=== PATIENT | female | born 1980 | race Caucasian/White ===

== ENCOUNTER 2020-03-19 14:29 | Outpatient (REF) | payer MEDICAID, SELFPAY | END 2020-03-19 14:30 | disposition home or self-care (01) | LOC: HO.LAB 14:29 | PROVIDERS: Visit Provider Internal Medicine | DX: Z20.828 Contact with and (suspected) exposure to other viral communicable diseases (principal) | CPT/HCPCS: C9803; U0003 ==

== ENCOUNTER 2020-05-10 16:50 | Outpatient (REF) | payer MEDICAID, SELFPAY | END 2020-05-10 16:51 | disposition home or self-care (01) | LOC: HO.LAB 16:50 | PROVIDERS: Visit Provider Internal Medicine | DX: Z20.822 Contact with and (suspected) exposure to COVID-19 (principal) | CPT/HCPCS: 36415; C9803; U0003; U0005 ==

== ENCOUNTER 2021-04-01 13:17 | Emergency (ER) | payer MEDICAID, SELFPAY ==
--- NOTE | ~2021-04-01 | XR_ITS ---
EXAMINATION: XR CHEST CLINICAL INFORMATION: Chest pain COMPARISON: None TECHNIQUE: Frontal view of the chest was obtained. FINDINGS: The lungs are clear. There is no pneumothorax or pleural reaction. No infiltrate or groundglass opacity or effusion. Heart size normal. The hilar and mediastinal contours are unremarkable. No visible acute bony abnormality. XR/XR chest 1V IMPRESSION: Unremarkable examination.
--- NOTE | 2021-04-01 14:48 | ECG_ITS ---
Test Reason : cp Blood Pressure : / mmHG Vent. Rate : 082 BPM Atrial Rate : 082 BPM P-R Int : 126 ms QRS Dur : 076 ms QT Int : 360 ms P-R-T Axes : 024 041 046 degrees QTc Int : 420 ms Normal sinus rhythm Normal ECG When compared with ECG of 02-SEP-2016 00:03, No significant change was found Referred By: Generic ED Physician Electronically Signed By:Pradip Meeks
[2021-04-01 15:00] VITALS: BP 122/58; PULSE 90; RESP 18; TEMP 36.9; O2SAT 100
[2021-04-01 15:07] LABS: MANUAL DIFF FLAG NO
[2021-04-01 15:09] LABS: Basophils Percent Auto 0.6 % (0-2); Eosinophils Absolute Auto 0.3 X10*3/uL (0.0-0.4); Hematocrit 36.3 % (37.0-47.0); Hemoglobin 11.8 g/dl (12.0-16.0); Imm Gran Abs Auto 0.02 X10*3/uL (0.00-0.03); Imm Gran Pct Auto 0.3 % (0.0-0.4); Lymphocytes Absolute Auto 0.8 X10*3/uL (1.2-4.9); Lymphocytes Percent Auto 11.9 % (20-40); Mean Corpuscular HGB Conc 32.5 g/dl (31.0-35.0); Mean Corpuscular Hemoglobin 26.8 pg (27.0-33.0); Mean Corpuscular Volume 82.5 fL (80.0-98.0); Mean Platelet Volume 12.4 fL (9.4-12.3); Monocytes Absolute Auto 0.5 X10*3/uL (0.1-1.2); Monocytes Percent Auto 6.9 % (2-11); Neutrophils Absolute Auto 5.1 x10*3/uL (2.0-8.3); Neutrophils Percent Auto 76.3 % (45-73); Platelet Count 177 X10*3/uL (160-400); Red Cell Distribution Width 13.8 % (11.0-16.0); White Blood Count 6.7 X10*3/uL (4.8-10.8)
[2021-04-01 15:21] LABS: Anion Gap 10 (12-20); Blood Urea Nitrogen 8 mg/dL (9-16); Calcium 9.3 mg/dL (8.4-10.2); Carbon Dioxide 28 mmol/L (22-29); Chloride 106 mmol/L (96-108); Estimated Glomerular Filt Rate > 60; Glucose Random 91 mg/dL (60-115); Potassium 3.6 mmol/L (3.3-5.1); Sodium 140 mmol/L (135-145)
[2021-04-01 15:27] VITALS: BP 122/71; PULSE 89; RESP 18; TEMP 36.8; O2SAT 100; BMI 27.4
[2021-04-01 15:27] LABS: Troponin-I High Sensitivity < 3.5 ng/L (<3.5-17.0)
[2021-04-01 15:58] LABS: COVID-19 Test Negative (Negative); IDNOW Serial# 9DD0AD1C
--- NOTE | 2021-04-01 16:03 | ED_ITS ---
HPI - URI/Sore Throat General Chief Complaint: Upper Respiratory Symptoms Stated Complaint: Chest pain/asthma Time Seen by Provider: 04/01/21 16:02 Source: patient Mode of arrival: ambulatory Limitations: no limitations History of Present Illness HPI Narrative: 41-year-old female here with complaints of chest discomfort while coughing, wheezing, chills and body aches 1st 2-3 days. Patient tells me she ran out of her albuterol inhaler at home. She is not vaccinated for COVID. She denies any fever, abdominal pain, vomiting, diarrhea, rash. No leg swelling or pain. No recent travel or surgery. No OCP use. Related Data Previous Rx's Medication Instructions Recorded benzonatate 100 mg capsule 200 mg PO TID PRN #20 cap 04/01/21 ibuprofen 600 mg tablet 600 mg PO Q8H PRN #20 tab 04/01/21 prednisone 20 mg tablet 40 mg PO DAILY #10 tab 04/01/21 Allergies Allergy/AdvReac Type Severity Reaction Status Date / Time Iodine and Iodide Containing Allergy Unknown UNKNOWN Verified 04/01/21 15:27 Produc [IODINE AND IODIDE CONTAINING PRODUC] shrimp [SHRIMP] Allergy Unknown ANAPHYLAXIS Verified 04/01/21 15:27 Review of Systems Review of Systems: Yes all other systems are reviewed and are negative Constitutional: Constitutional: Reports no additional constitutional complaints, Denies body ache(s), Reports chills, Denies fever(s), Denies headache(s) and Denies weakness Eyes: Eyes: Reports no additional eye complaints and Denies change in vision ENT: Reports system reviewed and no additional complaints, except as documented, Denies dizziness, Denies headache(s), Denies nasal congestion, Denies nasal discharge and Denies neck pain Cardiovascular: Cardiovascular: Reports no additional cardiovascular complaints, Reports chest pain, Denies leg edema and Denies dyspnea Respiratory: Respiratory: Reports no additional respiratory complaints, Reports cough, Denies dyspnea and Reports wheezing Gastrointestinal: Gastrointestinal: Reports no additional gastrointestinal complaints, Denies abdominal pain, Denies diarrhea, Denies nausea and Denies vomiting Genitourinary: Genitourinary: Reports no additional female genitourinary complaints and Denies urinary incontinence Musculoskeletal: Musculoskeletal: Reports no additional musculoskeletal complaints, Denies back pain, Denies arthralgias, Denies joint swelling, Denies neck pain, Denies numbness and Denies tingling Integumentary/Breasts: Skin/Breast: Reports system reviewed and no additional complaints, except as docu and Denies rash Neurologic: Reports system reviewed and no additional complaints, except as documented, Denies Abnormal speech present, Denies dizziness, Denies headache(s), Denies numbness, Denies tingling and Denies weakness Allergic/Immunologic: Allergic/Immunologic: Reports wheezing PMFSH Past Medical History Attestation statement: The following information was validated with the patient. Source: old records reviewed and nursing notes reviewed Medical History Asthma Pulmonary embolism Social History Social History Advance Directives: No Advance Directives Information Provided: No Patient : No Physical Exam Vital Signs: Vital Signs: Last Vital Signs Temp 98.3 F 04/01/21 15:27 Pulse 89 04/01/21 15:27 Resp 18 04/01/21 15:27 BP 122/71 04/01/21 15:27 Pulse Ox 100 04/01/21 15:27 BMI result Body Mass Index 27.4 Const: Other: Patient crying, tearful General: cooperative, healthy appearing, comfortable and no acute distress Orientation/consciousness: patient oriented x3 Limitations: no limitations HENMT: Head: Yes normal to inspection Ears: hearing grossly normal jordy aterally General nose exam: Normal external nose present Face and sinus: Yes normal facial exam Mouth: Normal oral and palatal mucosa present Throat: Yes posterior oropharynx normal Eyes: General: appearance normal, both eyes and all related structures Pupils: Equal, round and reactive pupils present Neck: Neck: Yes normal visual inspection Chest: Other: Central chest tenderness to palpation Chest palpation & inspection: normal inspection of the chest Resp: Effort & Inspection: normal respiratory effort Auscultation: clear to auscultation bilaterally Cardio: Rate: regular rate Rhythm: regular rhythm Peripheral pulses: Peripheral pulses 2+ throughout GI: Inspection: Yes normal to inspection Palpation (GI): Soft to palpation and nontender Auscultation: normal bowel sounds Back/Spine/Pelvis: Thoracic/Lumbar Spine: thoracic and lumbar spine normal to inspection Skin: General skin exam: no rashes or lesions noted Neuro: General: patient oriented x3, no focal motor deficits and normal s ensation to monofilament Cranial nerves: Yes Equal, round and reactive pupils present Cognition (Neuro): normal cognition Speech: No Abnormal speech present Gait exam (Neuro): Normal gait present Motor exam (neuro): 5/5 motor strength present throughout Extrem: General: Yes normal to inspection, Yes no pedal edema and Yes no calf tenderness Course Course Course Narrative: 41-year-old female here with complaints of chest discomfort with coughing, wheezing, cough, body aches and chills for the last few days. On arrival patient's vitals are stable. She is speaking full sentences. Her lungs are clear. She is quite tearful and crying. She has pain with palpation of her central chest. There is no leg swelling or pain noted. Will check chest x-ray, EKG, COVID screen, labs 1744-patient is feeling improved. Her COVID screen, chest x-ray, labs and EKG are all unremarkable. Likely viral syndrome. She does have some mild expiratory wheezing which seems improved with the albuterol MDI. I think her coughing is likely causing some chest wall discomfort. Plan for discharge home with albuterol inhaler and prednisone burst. Reviewed worrisome signs and symptoms of when to return to the emergency department. Comfortable discharge home. MDM - URI/Sore Throat MDM Narrative Medical decision making narrative: Less likely PE with no hypoxia, tachypnea, tachycardia. No clinical findings concerning for DVT. Negative D-dimer. Patient tells me that she did have a pulmonary embolism 18 years ago when she wa s for her child. She has not had any additional pulmonary embolisms since then and they thought this was induced from . Less likely ACS with negative troponin EKG Medical Records Attestation: I reviewed the patient's medical records. Lab Data Attestation: I reviewed the patient's lab results. Result diagrams: 04/01/21 15:00 04/01/21 15:00 Labs: Lab Results 04/01/21 04/01/21 04/01/21 Range/Units 15:00 15:00 15:00 WBC 6.7 (4.8-10.8) X10*3/uL RBC 4.40 (4.20-5.50) X10*6/uL Hgb 11.8 L (12.0-16.0) g/dl Hct 36.3 L (37.0-47.0) % MCV 82.5 (80.0-98.0) fL MCH 26.8 L (27.0-33.0) pg MCHC 32.5 (31.0-35.0) g/dl RDW 13.8 (11.0-16.0) % Plt Count 177 (160-400) X10*3/uL MPV 12.4 H (9.4-12.3) fL Immature Gran % (Auto) 0.3 (0.0-0.4) % Neut % (Auto) 76.3 H (45-73) % Lymph % (Auto) 11.9 L (20-40) % Hickman % (Auto) 6.9 (2-11) % Eos % (Auto) 4.0 (0-4) % Baso % (Auto) 0.6 (0-2) % Lymph # (Auto) 0.8 L (1.2-4.9) X10*3/uL Hickman # (Auto) 0.5 (0.1-1.2) X10*3/uL Eos # (Auto) 0.3 (0.0-0.4) X10*3/uL Baso # (Auto) 0.0 (0.0-0.2) X10*3/uL Abs Immat Gran (auto) 0.02 (0.00-0.03) X10*3/uL Absolute Neuts (auto) 5.1 (2.0-8.3) x10*3/uL Absolute Nucleated RBC 0.000 (0.0-0.012) X10*3/uL Nucleated RBC % (auto) 0.0 (0.0-0.2) /100WBC PT (9.9-13.0) SEC INR (0.9-1.1) D-Dimer High Sensitivty NG/ML Sodium 140 (135-145) mmol/L Potassium 3.6 (3.3-5.1) mmol/L Chloride 106 (96-108) mmol/L Carbon Dioxide 28 (22-29) mmol/L Anion Gap 10 L (12-20) BUN 8 L (9-16) mg/dL Creatinine 0.75 (0.5-1.4) mg/dL Estim Creat Clear Calc TNP Estimated GFR > 60 Random Glucose 91 (60-115) mg/dL Calcium 9.3 (8.4-10.2) mg/dL Troponin I High Sens < 3.5 (<3.5-17.0) ng/L COVID-19 (YI) (Negative) COVID-19 Clin Com 04/01/21 04/01/21 Range/Units 15:33 16:22 WBC (4.8-10.8) X10*3/uL RBC (4.20-5.50) X10*6/uL Hgb (12.0-16.0) g/dl Hct (37.0-47.0) % MCV (80.0-98.0) fL MCH (27.0-33.0) pg MCHC (31.0-35.0) g/dl RDW (11.0-16.0) % Plt Count (160-400) X10*3/uL MPV (9.4-12.3) fL Immature Gran % (Auto) (0.0-0.4) % Neut % (Auto) (45-73) % Lymph % (Auto) (20-40) % Hickman % (Auto) (2-11) % Eos % (Auto) (0-4) % Baso % (Auto) (0-2) % Lymph # (Auto) (1.2-4.9) X10*3/uL Hickman # (Auto) (0.1-1.2) X10*3/uL Eos # (Auto) (0.0-0.4) X10*3/uL Baso # (Auto) (0.0-0.2) X10*3/uL Abs Immat Gran (auto) (0.00-0.03) X10*3/uL Absolute Neuts (auto) (2.0-8.3) x10*3/uL Absolute Nucleated RBC (0.0-0.012) X10*3/uL Nucleated RBC % (auto) (0.0-0.2) /100WBC PT 11.4 (9.9-13.0) SEC INR 1.0 (0.9-1.1) D-Dimer High Sensitivty < 150 NG/ML Sodium (135-145) mmol/L Potassium (3.3-5.1) mmol/L Chloride (96-108) mmol/L Carbon Dioxide (22-29) mmol/L Anion Gap (12-20) BUN (9-16) mg/dL Creatinine (0.5-1.4) mg/dL Estim Creat Clear Calc Estimated GFR Random Glucose (60-115) mg/dL Calcium (8.4-10.2) mg/dL Troponin I High Sens (<3.5-17.0) ng/L COVID-19 (YI) Negative (Negative) COVID-19 Clin Com See Note Imaging Data Chest x-ray: Attestation: I personally reviewed and interpreted this imaging study as follows: Radiologist's impression: EXAMINATION: XR CHEST CLINICAL INFORMATION: Chest pain COMPARISON: None TECHNIQUE: Frontal view of the chest was obtained. FINDINGS: The lungs are clear. There is no pneumothorax or pleural reaction. No infiltrate or groundglass opacity or effusion. Heart size normal. The hilar and mediastinal contours are unremarkable. No visible acute bony abnormality. XR/XR chest 1V IMPRESSION: Unremarkable examination. ? ECG Data Attestation: I personally reviewed and interpreted this ECG as follows: ECG interpretation date: 04/01/21 ECG interpretation time: 14:48 Interpretation: Normal sinus rhythm with a rate of 82, normal PA, normal QRS, normal QT Discharge Plan Discharge Clinical Impression: Upper respiratory infection, Chest wall muscle strain Patient Disposition: Home, Self-Care Instructions: Viral Syndrome (ED), Chest Wall Pain (ED) Additional Instructions: COVID test is negative Take Motrin or Tylenol for pain as needed Use inhaler 2 puffs every 4 hours for cough or wheezing Start prednisone today Prescriptions: New ibuprofen 600 mg tablet 600 mg PO Q8H PRN (Reason: fever or pain) Qty: 20 RF: 0 prednisone 20 mg tablet 40 mg PO DAILY Qty: 10 RF: 0 benzonatate 100 mg capsule 200 mg PO TID PRN (Reason: cough) Qty: 20 RF: 0 Referrals: [facility] [Primary Care Provider] - 2 days Interventions: ED Discharge Assessment Last Done: 04/01/21 17:20 Discharge Date/Time: 04/01/21 17:21
[2021-04-01] MEDS: Ibuprofen 600 MG TABLET PO (16:30)
[2021-04-01 16:36] LABS: Prothrombin Time 11.4 SEC (9.9-13.0)
[2021-04-01 16:38] LABS: D Dimer High Sensitivity < 150 NG/ML
== END 2021-04-01 17:21 | disposition home or self-care (01) ==
PROVIDERS: Nurse Practitioner Family; Emergency Provider Emergency Medicine
DX: J06.9 Acute upper respiratory infection, unspecified (principal); S29.011A Strain of muscle and tendon of front wall of thorax, initial encounter; J45.909 Unspecified asthma, uncomplicated; Z86.711 Personal history of pulmonary embolism; X58.XXXA Exposure to other specified factors, initial encounter; Y93.9 Activity, unspecified; Y92.9 Unspecified place or not applicable; Y99.9 Unspecified external cause status; Z20.822 Contact with and (suspected) exposure to COVID-19
CPT/HCPCS: 36415; 71045; 80048; 84484; 85025; 85379; 85610; 87635; 93005; 99284

== ENCOUNTER 2022-06-03 13:26 | Emergency (ER) | payer MEDICAID, SELFPAY ==
--- NOTE | ~2022-06-03 | XR_ITS ---
EXAMINATION: XR HAND, LEFT CLINICAL INFORMATION: Left thumb pain. COMPARISON: None TECHNIQUE: PA, lateral, and oblique views of the left hand. An indicator arrow points to the first digit. FINDINGS: The bones and soft tissues are normal. No fracture. Alignment is anatomic. Joint spaces are maintained. No erosions or soft tissue calcifications. XR/XR hand LT 2V IMPRESSION: Unremarkable left hand. Specifically, the first digit appears intact without abnormality.
[2022-06-03 13:41] VITALS: BP 115/72; PULSE 87; RESP 16; TEMP 36.6; O2SAT 97; BMI 29.2
--- NOTE | 2022-06-03 13:41 | ED.UPPEXIN ---
HPI - Extremity Injury (Upper) General Chief Complaint: Extremity Problem Stated Complaint: L thumb pain Time Seen by Provider: 06/03/22 14:56 Source: patient Mode of arrival: ambulatory History of Present Illness HPI narrative: 42-year-old female with a past medical history of asthma, PE, presenting to the ED complaining of left thumb pain and popping x1 week. Denies injury/trauma or fall. Denies numbness, tingling, weakness, fever. MD complaint: injury to: finger Onset (ago): week(s) Related Data Previous Rx's Medication Instructions Recorded benzonatate 100 mg capsule 200 mg PO TID PRN cough #20 caps 04/01/21 ibuprofen 600 mg tablet 600 mg PO Q8H PRN fever or pain 04/01/21 #20 tabs prednisone 20 mg tablet 40 mg PO DAILY #10 tabs 04/01/21 acetaminophen 500 mg tablet 500 mg PO Q6H PRN fever or pain 06/03/22 (Tylenol Extra Strength) #14 tabs naproxen 500 mg tablet 500 mg PO BID PRN pain 10 days #20 06/03/22 tabs Allergies Allergy/AdvReac Type Severity Reaction Status Date / Time Iodine and Iodide Containing Allergy Unknown UNKNOWN Verified 04/01/21 15:27 Produc [IODINE AND IODIDE CONTAINING PRODUC] shrimp [SHRIMP] Allergy Unknown ANAPHYLAXIS Verified 04/01/21 15:27 Review of Systems Review of Systems: Constitutional: No Fever, No Chills ENT/Mouth: No Ear Pain, No Nasal Congestion, No sore throat, No Rhinorrhea, No Swallowing Difficulty Cardiovascular: No Chest Pain, No SOB Respiratory: No Cough, No Sputum, Gastrointestinal: No Nausea, No Vomiting, No Diarrhea, No Constipation, No Abdominal pain Musculoskeletal: + joint pain, No Myalgias, No Joint Swelling Skin: No Skin Lesions, No rash Neuro: No Weakness, No Numbness, No Paresthesias Yes all other systems are reviewed and are negative Constitutional: Constitutional: Reports as per [facility] Past Medical History Attestation statement: The following information was validated with the patient. Medical History Asthma Pulmonary embolism Physical Exam Vital Signs: Vital Signs: Last Vital Signs Temp 97.9 F 06/03/22 13:41 Pulse 87 06/03/22 13:41 Resp 16 06/03/22 13:41 BP 115/72 06/03/22 13:41 Pulse Ox 97 06/03/22 13:41 O2 Del Method 06/03/22 13:41 BMI result Body Mass Index 29.2 Const: General: cooperative, healthy appearing and no acute distress Orientation/consciousness: patient oriented x3 Limitations: no limitations HEENT: Head: Yes normal to inspection and Yes atraumatic Ears: hearing grossly normal bilaterally General nose exam: Normal external nose present Face and sinus: Yes normal facial exam Eyes: General: appearance normal, both eyes and all related structures EOM: EOMs intact bilaterally Neck: Neck: Yes normal visual inspection and Yes no meningeal signs Resp: Effort & Inspection: normal respiratory effort and no respiratory distress Cardio: Rate: regular rate Heart sounds: S1 normal heart sound present and S2 normal heart sound present Peripheral pulses: radial pulses present and ulnar radial pulses present Skin: Rashes: no rashes Wounds: no wounds Neuro: General: patient oriented x3, tone normal, moves all extremities, no meningeal signs and no focal motor deficits Gait exam (Neuro): Normal gait present Extrem: Other: + left thenar prominence with ttp. Wrist nontender. Finger to thumb opposition intact. No deformity. No snuffbox ttp. FROM intact with clicking. No dislocation General: Yes normal to inspection Course Course Course Narrative: RME-- 42 yo F c/o L thumb pain x 1 week. Reports popping denies injury mild L thumb/thenar aspect ttp noted. No snuffbox ttp XRs ordered in triage 1757--XR hand LT 2V IMPRESSION: Unremarkable left hand. Specifically, the first digit appears intact without abnormality. >> thumb spica applied for comfort. Results discussed, recommended close orthopedic follow-up Results discussed with patient including worrisome signs and symptoms and strict return precautions, and when to return to the emergency department. They verbalized understanding and feel safe for discharge at this time. Medical Decision Making Medical Decision Making MDM Narrative: 42-year-old female with a past medical history of asthma, PE, presenting to the ED complaining of left thumb pain and popping x1 week. On exam vital signs stable, NAD, nontoxic appearing, physical exam as noted above. Concern for trigger finger vs tenosynovitis. Lower suspicion for fracture/dislocation. Low suspicion for septic joint/arthritis plan: X-rays Differential Diagnosis Differential Diagnoses: The differential diagnosis associated with the presentation includes as above Radiology Impression Discussion of test interpretation with radiology: I have reviewed the radiologist's reading. Prescription Management I considered prescription management with: Pain Medication Discharge Plan Discharge Clinical Impression: Trigger finger Patient Disposition: Home, Self-Care Instructions: Trigger Finger (ED) Additional Instructions: Your x-ray is unremarkable. You likely have trigger finger. Wear splint into you see the infection control specialist. You may take off splint to shower and sleep Ice and elevate as needed. Naproxen as an anti-inflammatory/pain medication, take with food. In addition take Tylenol If symptoms persist or worsen return to the ED Prescriptions: New acetaminophen [Tylenol Extra Strength] 500 mg tablet 500 mg PO Q6H PRN (Reason: fever or pain) Qty: 14 0RF naproxen 500 mg tablet 500 mg PO BID PRN (Reason: pain) 10 Days Qty: 20 0RF No Action ibuprofen 600 mg tablet 600 mg PO Q8H PRN (Reason: fever or pain) Qty: 20 0RF prednisone 20 mg tablet 40 mg PO DAILY Qty: 10 0RF benzonatate 100 mg capsule 200 mg PO TID PRN (Reason: cough) Qty: 20 0RF Referrals: [facility] [facility] [Provider Group] - 5 days Interventions: ED Discharge Assessment Last Done: 06/03/22 15:05
== END 2022-06-03 15:09 | disposition home or self-care (01) ==
LOC: HO.ED 15:06
PROVIDERS: Emergency Provider Emergency Medicine Emergency Medical Services
DX: M65.312 Trigger thumb, left thumb (principal); Z79.899 Other long term (current) drug therapy
CPT/HCPCS: 73120; 99282; 99283

== ENCOUNTER 2022-09-12 01:30 | Emergency (ER) | payer MEDICAID, SELFPAY ==
--- NOTE | ~2022-09-12 | XR_ITS ---
EXAMINATION: XR CHEST CLINICAL INFORMATION: Left lower rib pain. COMPARISON: 04/01/2021 TECHNIQUE: Frontal view of the chest was obtained. FINDINGS: The lungs are well expanded. There is no focal consolidation, edema, or effusion. No pneumothorax. The cardiomediastinal silhouette is within normal limits. No acute osseous abnormality. XR/XR chest 1V IMPRESSION: Clear lungs. No displaced fractures are seen.
--- NOTE | ~2022-09-12 | CT_ITS ---
EXAMINATION: CT ABDOMEN AND PELVIS WITHOUT CONTRAST CLINICAL INFORMATION: Left flank pain COMPARISON: None available. TECHNIQUE: Multidetector volumetric imaging was performed from the superior aspect of the liver through the pubic symphysis. Sagittal and coronal reformatted images were obtained on the technologist's workstation. This CT examination was performed using dose optimization techniques as appropriate, variously including the following: *Automated exposure control *Adjustment of mA and/or kV according to patient size (this includes techniques or standardized protocols for targeted exams where dose is matched to indication/reason for exam; i.e. extremities or head) *Use of iterative reconstruction technique DLP: 664 mGy-cm FINDINGS: LUNG BASES: The visualized lung bases are unremarkable. LIVER, GALLBLADDER, AND BILIARY TREE: The liver is normal in size, shape, and attenuation. No biliary ductal dilatation. Scattered hypoattenuating lesions throughout the liver are too small to fully characterize. The gallbladder is unremarkable with no evidence of radiopaque gallstones, gallbladder wall thickening, or obvious pericholecystic inflammatory changes. PANCREAS: Unremarkable. SPLEEN: Unremarkable. ADRENAL GLANDS: Unremarkable. KIDNEYS AND URETERS: The kidneys are normal in size, shape, and attenuation. No hydronephrosis, hydroureter, or calculi seen. No perinephric stranding. BLADDER: Unremarkable. GASTROINTESTINAL TRACT: The stomach is unremarkable. Normal caliber small bowel. No obstruction. Normal appendix. No colonic wall thickening or acute inflammation. No free air or free fluid. ABDOMINAL WALL: No significant hernia is appreciated. LYMPH NODES: Normal. VASCULAR: Unremarkable. PELVIC VISCERA: Anteverted uterus. Mild fullness of the left ovary. No gross mass identified. OSSEOUS STRUCTURES: No acute or suspicious osseous abnormality. CT/CT abdomen pelvis wo IV con IMPRESSION: No acute findings in the abdomen or pelvis. No hydronephrosis or nephrolithiasis. No inflammatory changes. Fleischner guidelines were followed.
[2022-09-12 01:37] VITALS: BP 167/87; PULSE 118; RESP 20; TEMP 36.8; O2SAT 97; BMI 34.4
--- NOTE | 2022-09-12 02:04 | ED.GENADULT ---
HPI - General Adult General Chief complaint: Abdominal Pain Stated complaint: Flank pain Time Seen by Provider: 09/12/22 01:53 Source: patient Mode of arrival: ambulatory Limitations: no limitations History of Present Illness HPI narrative: Patient comes emergency room complaining of left flank pain/left upper quadrant pain starting about an hour ago. Patient denies nausea vomiting diarrhea. Denies any trauma. Denies chest pain or shortness of breath Related Data Previous Rx's Medication Instructions Recorded benzonatate 100 mg capsule 200 mg PO TID PRN cough #20 caps 04/01/21 ibuprofen 600 mg tablet 600 mg PO Q8H PRN fever or pain 04/01/21 #20 tabs prednisone 20 mg tablet 40 mg PO DAILY #10 tabs 04/01/21 acetaminophen 500 mg tablet 500 mg PO Q6H PRN fever or pain 06/03/22 (Tylenol Extra Strength) #14 tabs naproxen 500 mg tablet 500 mg PO BID PRN pain 10 days #20 06/03/22 tabs ketorolac 10 mg tablet 10 mg PO BID PRN pain 5 days #7 09/12/22 tabs Allergies Allergy/AdvReac Type Severity Reaction Status Date / Time Iodine and Iodide Containing Allergy Unknown UNKNOWN Verified 04/01/21 15:27 Produc [IODINE AND IODIDE CONTAINING PRODUC] shrimp [SHRIMP] Allergy Unknown ANAPHYLAXIS Verified 04/01/21 15:27 Review of Systems Review of Systems: Constitutional : No Weight loss, No Fever, No Chills, No Night Sweats, No Fatigue, No Malaise ENT/Mouth : No Hearing loss, No Ear Pain, No Nasal Congestion, No Sinus Pain, No Hoarseness, No sore throat, No Rhinorrhea, No Swallowing Difficulty Eyes: No Eye Pain, No Swelling, No Redness, No Foreign Body, No Discharge, No Vision Changes Cardiovascular : No Chest Pain, No SOB, No Dyspnea on Exertion, No Orthopnea, No Edema, No Palpitations Respiratory : No Cough, No Sputum, No Wheezing, No Smoke Exposure, No Dyspnea Gastrointestinal : No Nausea, No Vomiting, No Diarrhea, No Constipation, No abdominal Pain, No Hematochezia, No Melena Genitourinary : no irregular bleeding, No Dysuria, No Urinary Frequency, No Hematuria, No Urinary Incontinence, No Urgency, complaining of left Flank Pain, No Urinary Flow Changes, No Hesitancy Musculoskeletal : Complaining of left-sided rib pain No joint pain, No Myalgias, No Joint Swelling Skin : No Skin Lesions, No rash Neuro : No Weakness, No Numbness, No Paresthesias, No Loss of Consciousness, No Dizziness, No Headache Psych : No Anxiety/Panic, No Depression, No SI/HI/AH/VH, No Social Issues, Heme/Lymph: No Bruising, No Bleeding,No Lymphadenopathy Endocrine : No Polyuria, No Polydipsia, No Temperature Intolerance REPLACED BY [facility] Past Medical History Medical History Asthma Pulmonary embolism Social History Social History Alcohol intake: current Alcohol intake frequency: 3 or more drinks per day Smoked in Last 30 Days: No Substance Use Type: Crack/Cocaine and Marijuana Substance Use Frequency: Weekly Advance Directives: No Advance Directives Information Provided: Yes Physical Exam ED Vital Signs: Vital Signs - 24 hr 09/12/22 01:37 09/12/22 02:09 Temperature 98.3 F 98.0 F Pulse Rate 118 H 95 Respiratory Rate 20 16 Blood Pressure 167/87 H 134/77 Pulse Oximetry 97 98 Oxygen Delivery Method Room Air Room Air BMI result Body Mass Index 34.4 Const Other: Appearance: Alert. Oriented X3. Crying inconsolably Eyes: Pupils equal, round and reactive to light. ENT: Pharynx normal. Neck: Normal inspection. Neck supple. No lymph nodes noted. No crepitus CVS: Normal heart rate and rhythm. Pulses normal. Normal S1 and S2 Respiratory: No respiratory distress. Breath sounds normal. No Wheezing. No rales Abdomen: Soft and nontender. No rigidity. No distention. Skin: Skin warm and dry. Normal skin color. Normal skin turgor. Extremities: No lower extremity edema. No Lacerations. No Rash Neuro: Oriented X 3. No motor deficit. No sensory deficit. Moving all extremities. No slurred speech. CN 2 through 12 grossly intact Psych: calm, cooperative, crying Course Course Course Narrative: Patient's labs and imaging pending Medications Administered Discontinued Medications Generic Name Dose Route Start Last Admin Trade Name Freq PRN Reason Stop Dose Admin Acetaminophen 975 mg 09/12/22 02:36 09/12/22 02:45 Acetaminophen 325 Mg Tablet PO 09/12/22 02:37 975 mg ONCE ONE Administration Ketorolac Tromethamine 30 mg 09/12/22 01:56 09/12/22 02:10 Ketorolac Tromethamine 30 Mg/Ml Vial IVPUSH 09/12/22 01:57 30 mg ONCE ONE Administration Medical Decision Making Medical Decision Making [facility] Narrative: -discussed the labs with the patient, no acute finding -my interpretation EKG: Normal sinus rhythm, no ST segment depression or elevation, no T-wave inversion, QTC 430 -CT of the abdomen pelvis and chest x-ray negative -U tox positive for cocaine and fentanyl Lab Data [facility] Lab Attestation statement: I reviewed the patient's lab results. 09/12/22 02:06 09/12/22 02:06 Labs: Lab Results 09/12/22 09/12/22 09/12/22 Range/Units 02:06 02:06 02:06 WBC 9.0 (4.8-10.8) X10*3/uL RBC 4.83 (4.20-5.50) X10*6/uL Hgb 10.8 L (12.0-16.0) g/dl Hct 35.2 L (37.0-47.0) % MCV 72.9 L (80.0-98.0) fL MCH 22.4 L (27.0-33.0) pg MCHC 30.7 L (31.0-35.0) g/dl RDW 16.2 H (11.0-16.0) % Plt Count 254 D (160-400) X10*3/uL MPV 11.7 (9.4-12.3) fL Immature Gran % (Auto) 0.3 (0.0-0.4) % Neut % (Auto) 69.9 (45-73) % Lymph % (Auto) 20.2 (20-40) % [place] % (Auto) 6.1 (2-11) % Eos % (Auto) 2.8 (0-4) % Baso % (Auto) 0.7 (0-2) % Lymph # (Auto) 1.8 (1.2-4.9) X10*3/uL [place] # (Auto) 0.6 (0.1-1.2) X10*3/uL Eos # (Auto) 0.3 (0.0-0.4) X10*3/uL Baso # (Auto) 0.1 (0.0-0.2) X10*3/uL Abs Immat Gran (auto) 0.03 (0.00-0.03) X10*3/uL Absolute Neuts (auto) 6.3 (2.0-8.3) x10*3/uL Absolute Nucleated RBC 0.000 (0.0-0.012) X10*3/uL Nucleated RBC % (auto) 0.0 (0.0-0.2) /100WBC PT (10.0-13.1) SEC INR (0.9-1.1) D-Dimer High Sensitivty 203 NG/ML Sodium 136 (135-145) mmol/L Potassium 3.8 (3.3-5.1) mmol/L Chloride 103 (96-108) mmol/L Carbon Dioxide 26 (22-29) mmol/L Anion Gap 11 L (12-20) BUN 15 (9-16) mg/dL Creatinine 0.90 (0.5-1.4) mg/dL Estim Creat Clear Calc 83.4 Estimated GFR > 60 Random Glucose 107 (60-115) mg/dL Calcium 9.2 (8.4-10.2) mg/dL Total Bilirubin 0.5 (0.0-1.0) mg/dL Direct Bilirubin 0.1 (0.0-0.5) mg/dL AST 29 (5-31) U/L ALT 41 H (0-31) U/L Alkaline Phosphatase 144 H (39-117) U/L Total Protein 7.7 (6.5-8.0) g/dL Albumin 4.4 (3.5-5.0) g/dL Lipase 19 (8-78) U/L Urine Color Urine Appearance Urine pH (5.0-9.0) Ur Specific [place] (1.005-1.025) Urine Protein (Neg-Trace) mg/dL Urine Glucose (UA) (Negative) mg/dL Urine Ketones (Negative) mg/dL Urine Blood (Negative) Urine Nitrite (Negative) Ur Leukocyte Esterase (Negative) Urine RBC (0-2) /HPF Urine WBC (0-5) /HPF Ur Squamous Epith Cells (0-2) /HPF Urine Bacteria (None Seen) Hyaline Casts (0-2) /LPF Urine Test (NEGATIVE) Urine Opiates Screen (Not Detect) Urine Fentanyl Screen (Not Detect) Ur Barbiturates Screen (Not Detect) Ur Phencyclidine Scrn (Not Detect) Ur Amphetamines Screen (Not Detect) U Benzodiazepines Scrn (Not Detect) Urine Cocaine Screen (Not Detect) U Marijuana (THC) Screen (Not Detect) 09/12/22 09/12/22 09/12/22 Range/Units 02:07 03:00 03:00 WBC (4.8-10.8) X10*3/uL RBC (4.20-5.50) X10*6/uL Hgb (12.0-16.0) g/dl Hct (37.0-47.0) % MCV (80.0-98.0) fL MCH (27.0-33.0) pg MCHC (31.0-35.0) g/dl RDW (11.0-16.0) % Plt Count (160-400) X10*3/uL MPV (9.4-12.3) fL Immature Gran % (Auto) (0.0-0.4) % Neut % (Auto) (45-73) % Lymph % (Auto) (20-40) % [place] % (Auto) (2-11) % Eos % (Auto) (0-4) % Baso % (Auto) (0-2) % Lymph # (Auto) (1.2-4.9) X10*3/uL [place] # (Auto) (0.1-1.2) X10*3/uL Eos # (Auto) (0.0-0.4) X10*3/uL Baso # (Auto) (0.0-0.2) X10*3/uL Abs Immat Gran (auto) (0.00-0.03) X10*3/uL Absolute Neuts (auto) (2.0-8.3) x10*3/uL Absolute Nucleated RBC (0.0-0.012) X10*3/uL Nucleated RBC % (auto) (0.0-0.2) /100WBC PT 11.2 (10.0-13.1) SEC INR 1.0 (0.9-1.1) D-Dimer High Sensitivty NG/ML Sodium (135-145) mmol/L Potassium (3.3-5.1) mmol/L Chloride (96-108) mmol/L Carbon Dioxide (22-29) mmol/L Anion Gap (12-20) BUN (9-16) mg/dL Creatinine (0.5-1.4) mg/dL Estim Creat Clear Calc Estimated GFR Random Glucose (60-115) mg/dL Calcium (8.4-10.2) mg/dL Total Bilirubin (0.0-1.0) mg/dL Direct Bilirubin (0.0-0.5) mg/dL AST (5-31) U/L ALT (0-31) U/L Alkaline Phosphatase (39-117) U/L Total Protein (6.5-8.0) g/dL Albumin (3.5-5.0) g/dL Lipase (8-78) U/L Urine Color Yellow Urine Appearance Cloudy Urine pH 6.5 (5.0-9.0) Ur Specific K[place]fer 1.015 (1.005-1.025) Urine Protein Negative (Neg-Trace) mg/dL Urine Glucose (UA) Negative (Negative) mg/dL Urine Ketones Negative (Negative) mg/dL Urine Blood Negative (Negative) Urine Nitrite Negative (Negative) Ur Leukocyte Esterase Moderate (2+) H (Negative) Urine RBC 0-2 (0-2) /HPF Urine WBC 6-10 H (0-5) /HPF Ur Squamous Epith Cells 11-20 (0-2) /HPF Urine Bacteria 4+ (None Seen) Hyaline Casts 0-2 (0-2) /LPF Urine Test NEGATIVE (NEGATIVE) Urine Opiates Screen (Not Detect) Urine Fentanyl Screen (Not Detect) Ur Barbiturates Screen (Not Detect) Ur Phencyclidine Scrn (Not Detect) Ur Amphetamines Screen (Not Detect) U Benzodiazepines Scrn (Not Detect) Urine Cocaine Screen (Not Detect) U Marijuana (THC) Screen (Not Detect) 09/12/22 Range/Units 03:00 WBC (4.8-10.8) X10*3/uL RBC (4.20-5.50) X10*6/uL Hgb (12.0-16.0) g/dl Hct (37.0-47.0) % MCV (80.0-98.0) fL MCH (27.0-33.0) pg MCHC (31.0-35.0) g/dl RDW (11.0-16.0) % Plt Count (160-400) X10*3/uL MPV (9.4-12.3) fL Immature Gran % (Auto) (0.0-0.4) % Neut % (Auto) (45-73) % Lymph % (Auto) (20-40) % [place] % (Auto) (2-11) % Eos % (Auto) (0-4) % Baso % (Auto) (0-2) % Lymph # (Auto) (1.2-4.9) X10*3/uL [place] # (Auto) (0.1-1.2) X10*3/uL Eos # (Auto) (0.0-0.4) X10*3/uL Baso # (Auto) (0.0-0.2) X10*3/uL Abs Immat Gran (auto) (0.00-0.03) X10*3/uL Absolute Neuts (auto) (2.0-8.3) x10*3/uL Absolute Nucleated RBC (0.0-0.012) X10*3/uL Nucleated RBC % (auto) (0.0-0.2) /100WBC PT (10.0-13.1) SEC INR (0.9-1.1) D-Dimer High Sensitivty NG/ML Sodium (135-145) mmol/L Potassium (3.3-5.1) mmol/L Chloride (96-108) mmol/L Carbon Dioxide (22-29) mmol/L Anion Gap (12-20) BUN (9-16) mg/dL Creatinine (0.5-1.4) mg/dL Estim Creat Clear Calc Estimated GFR Random Glucose (60-115) mg/dL Calcium (8.4-10.2) mg/dL Total Bilirubin (0.0-1.0) mg/dL Direct Bilirubin (0.0-0.5) mg/dL AST (5-31) U/L ALT (0-31) U/L Alkaline Phosphatase (39-117) U/L Total Protein (6.5-8.0) g/dL Albumin (3.5-5.0) g/dL Lipase (8-78) U/L Urine Color Urine Appearance Urine pH (5.0-9.0) Ur Specific [place] (1.005-1.025) Urine Protein (Neg-Trace) mg/dL Urine Glucose (UA) (Negative) mg/dL Urine Ketones (Negative) mg/dL Urine Blood (Negative) Urine Nitrite (Negative) Ur Leukocyte Esterase (Negative) Urine RBC (0-2) /HPF Urine WBC (0-5) /HPF Ur Squamous Epith Cells (0-2) /HPF Urine Bacteria (None Seen) Hyaline Casts (0-2) /LPF Urine Test (NEGATIVE) Urine Opiates Screen Not Detected (Not Detect) Urine Fentanyl Screen POSITIVE H (Not Detect) Ur Barbiturates Screen Not Detected (Not Detect) Ur Phencyclidine Scrn Not Detected (Not Detect) Ur Amphetamines Screen Not Detected (Not Detect) U Benzodiazepines Scrn Not Detected (Not Detect) Urine Cocaine Screen POSITIVE H (Not Detect) U Marijuana (THC) Screen Not Detected (Not Detect) Discharge Plan Discharge Clinical Impression: Flank pain Patient Disposition: Home, Self-Care Instructions: Flank Pain (ED) Additional Instructions: Please follow-up with your primary care physician tomorrow. If you have any worsening or new symptoms, please return to the emergency room or call 911 Prescriptions: New ketorolac 10 mg tablet 10 mg PO BID PRN (Reason: pain) 5 Days Qty: 7 0RF Rx Instructions: Do not use this medication with ibuprofen or naproxen, only Tylenol if needed No Action ibuprofen 600 mg tablet 600 mg PO Q8H PRN (Reason: fever or pain) Qty: 20 0RF prednisone 20 mg tablet 40 mg PO DAILY Qty: 10 0RF benzonatate 100 mg capsule 200 mg PO TID PRN (Reason: cough) Qty: 20 0RF acetaminophen [Tylenol Extra Strength] 500 mg tablet 500 mg PO Q6H PRN (Reason: fever or pain) Qty: 14 0RF naproxen 500 mg tablet 500 mg PO BID PRN (Reason: pain) 10 Days Qty: 20 0RF
[2022-09-12 02:09] VITALS: BP 134/77; PULSE 95; RESP 16; TEMP 36.7; O2SAT 98
[2022-09-12 02:10] LABS: MANUAL DIFF FLAG NO
[2022-09-12] MEDS: Ketorolac Tromethamine 30 MG/ML VIAL IVPUSH (02:10)
[2022-09-12 02:12] LABS: Basophils Absolute Auto 0.1 X10*3/uL (0.0-0.2); Basophils Percent Auto 0.7 % (0-2); Eosinophils Absolute Auto 0.3 X10*3/uL (0.0-0.4); Eosinophils Percent Auto 2.8 % (0-4); Hematocrit 35.2 % (37.0-47.0); Hemoglobin 10.8 g/dl (12.0-16.0); Imm Gran Abs Auto 0.03 X10*3/uL (0.00-0.03); Imm Gran Pct Auto 0.3 % (0.0-0.4); Lymphocytes Absolute Auto 1.8 X10*3/uL (1.2-4.9); Lymphocytes Percent Auto 20.2 % (20-40); Mean Corpuscular HGB Conc 30.7 g/dl (31.0-35.0); Mean Corpuscular Hemoglobin 22.4 pg (27.0-33.0); Mean Corpuscular Volume 72.9 fL (80.0-98.0); Mean Platelet Volume 11.7 fL (9.4-12.3); Monocytes Absolute Auto 0.6 X10*3/uL (0.1-1.2); Monocytes Percent Auto 6.1 % (2-11); Neutrophils Absolute Auto 6.3 x10*3/uL (2.0-8.3); Neutrophils Percent Auto 69.9 % (45-73); Platelet Count 254 X10*3/uL (160-400); Red Blood Count 4.83 X10*6/uL (4.20-5.50); Red Cell Distribution Width 16.2 % (11.0-16.0)
--- NOTE | 2022-09-12 02:12 | PC.NURSE ---
Pt a&o, no sob or chest pain, pt complaining left flank pain radiating to llQ, 10/10 Pain, Iv placed, Labs collected and sent. Provider into assess pt. Will continue to monitor.
--- NOTE | 2022-09-12 02:17 | MHC.EDTECH ---
pt blood drawn and sent to lab ,vitals sign taken .
[2022-09-12 02:18] LABS: Prothrombin Time 11.2 SEC (10.0-13.1)
[2022-09-12 02:20] LABS: D Dimer High Sensitivity 203 NG/ML
[2022-09-12 02:31] LABS: Alanine Aminotransferase 41 U/L (0-31); Albumin Level 4.4 g/dL (3.5-5.0); Alkaline Phosphatase 144 U/L (39-117); Anion Gap 11 (12-20); Aspartate Amino Transferase 29 U/L (5-31); Bilirubin Direct 0.1 mg/dL (0.0-0.5); Bilirubin Total 0.5 mg/dL (0.0-1.0); Blood Urea Nitrogen 15 mg/dL (9-16); Calcium 9.2 mg/dL (8.4-10.2); Carbon Dioxide 26 mmol/L (22-29); Chloride 103 mmol/L (96-108); Creatinine Clr Calc Pharmacy 83.4; Estimated Glomerular Filt Rate > 60; Glucose Random 107 mg/dL (60-115); Lipase 19 U/L (8-78); Potassium 3.8 mmol/L (3.3-5.1); Sodium 136 mmol/L (135-145); Total Protein 7.7 g/dL (6.5-8.0)
[2022-09-12] MEDS: Acetaminophen 325 MG TABLET 975 MG PO (02:45)
--- NOTE | 2022-09-12 02:48 | PC.NURSE ---
Notified provider of pt pain level, medicated per mar, Will continue to montior.
[2022-09-12 03:12] LABS: Appearance Urine Cloudy; Color Urine Yellow; Glucose Urine UA Negative (Negative); Leukocyte Esterase Urine Moderate (2+) (Negative); Nitrite Urine Negative (Negative); PH 6.5 (5.0-9.0); Specific Gravity - Urine 1.015 (1.005-1.025); UMIC TRIGGER UACC YES; Urine Blood Negative (Negative); Urine Ketones Negative (Negative); Urine Protein Negative (Neg-Trace)
[2022-09-12 03:16] LABS: UPreg QC Valid YES; Urine Pregnancy NEGATIVE (NEGATIVE)
[2022-09-12 03:19] LABS: Bacteria Urine 4+ (None Seen); Hyaline Casts Urine 0-2 /LPF (0-2); RBC Urine 0-2 /HPF (0-2); UACC Culture Trigger YES
[2022-09-12 03:23] LABS: Amphetamine Screen Urine Not Detected (Not Detect); Barbiturates, Urine Not Detected (Not Detect); Benzodiazepines Screen Urine Not Detected (Not Detect); Cannabinoid Screen Urine Not Detected (Not Detect); Cocaine Screen Urine POSITIVE (Not Detect); Fentanyl, urine POSITIVE (Not Detect); Opiate Screen Urine Not Detected (Not Detect); Phencyclidine Screen Urine Not Detected (Not Detect)
--- NOTE | 2022-09-12 04:04 | ECG_ITS ---
Test Reason : ABD PAIN Blood Pressure : / mmHG Vent. Rate : 085 BPM Atrial Rate : 085 BPM P-R Int : 134 ms QRS Dur : 072 ms QT Int : 362 ms P-R-T Axes : 029 027 030 degrees QTc Int : 430 ms Normal sinus rhythm Normal ECG When compared with ECG of 01-APR-2021 14:54, No significant change was found Referred By: Jessika Doshi Electronically Signed By:Pradip Meeks
--- NOTE | 2022-09-12 04:29 | PC.NURSE ---
Reviewed discharge instruction with pt.Pt verbalized understanding. No sign of distress upon discharge.
== END 2022-09-12 04:31 | disposition home or self-care (01) ==
PROVIDERS: Emergency Provider Emergency Medicine
DX: R07.81 Pleurodynia (principal); R10.12 Left upper quadrant pain; R10.2 Pelvic and perineal pain; F14.10 Cocaine abuse, uncomplicated; F12.10 Cannabis abuse, uncomplicated; Z79.899 Other long term (current) drug therapy
CPT/HCPCS: 36415; 71045; 74176; 80048; 80076; 80307; 81001; 81025; 83690; 85025; 85379; 85610; 87086; 93005; 96374; 99284; 99285; J1885

== ENCOUNTER 2023-01-27 17:33 | Emergency (ER) | payer SELFPAY ==
--- NOTE | ~2023-01-27 | XR_ITS ---
EXAMINATION: Right hand and right finger x-ray CLINICAL INFORMATION: Pain. Swelling. COMPARISON: None. TECHNIQUE: 3 views of the right hand and 3 views of the right fifth finger FINDINGS: Bone alignment is normal. No acute fracture or dislocation. There may be old trauma to the base fifth metacarpal bone. Joint spaces are normal. Soft tissues are normal XR/XR finger RT min 2V IMPRESSION: Question old trauma to the base of the fifth metacarpal bone otherwise unremarkable exam.
--- NOTE | ~2023-01-27 | XR_ITS ---
EXAMINATION: Right hand and right finger x-ray CLINICAL INFORMATION: Pain. Swelling. COMPARISON: None. TECHNIQUE: 3 views of the right hand and 3 views of the right fifth finger FINDINGS: Bone alignment is normal. No acute fracture or dislocation. There may be old trauma to the base fifth metacarpal bone. Joint spaces are normal. Soft tissues are normal XR/XR hand RT min 3V IMPRESSION: Question old trauma to the base of the fifth metacarpal bone otherwise unremarkable exam.
[2023-01-27 17:36] VITALS: BP 126/84; PULSE 87; RESP 20; TEMP 36.5; O2SAT 98; BMI 27.4
--- NOTE | 2023-01-27 17:40 | ED_ITS ---
HPI - Extremity Problem General Chief complaint: Extremity Problem Stated complaint: ? fx pinky on R hand Time Seen by Provider: 01/27/23 20:11 Source: patient Mode of arrival: ambulatory Limitations: no limitations History of Present Illness HPI Narrative: 42-year-old female who presents emergency department for evaluation of injury to her right pinky. Patient states that she was coming to the end of her shift at work, she was walking down stairs and running her hand along the railing. She states that her 5th finger then got caught on the anchor point of the railing to the wall, which then caused hyperabduction of her 5th finger. She states that since then she developed severe pain in the right 5th finger to the point where she is having difficulty bending the finger. Related Data Previous Rx's Medication Instructions Recorded benzonatate 100 mg capsule 200 mg (2 x 100 mg) PO TID PRN 04/01/21 cough #20 caps ibuprofen 600 mg tablet 600 mg PO Q8H PRN fever or pain 04/01/21 #20 tabs prednisone 20 mg tablet 40 mg (2 x 20 mg) PO DAILY #10 tabs 04/01/21 acetaminophen 500 mg tablet 500 mg PO Q6H PRN fever or pain 06/03/22 (Tylenol Extra Strength) #14 tabs naproxen 500 mg tablet 500 mg PO BID PRN pain 10 days #20 06/03/22 tabs ketorolac 10 mg tablet 10 mg PO BID PRN pain 5 days #7 09/12/22 tabs oxycodone 5 mg tablet 5 mg PO Q4H PRN pain #10 tabs 01/27/23 Allergies Allergy/AdvReac Type Severity Reaction Status Date / Time Iodine and Iodide Containing Allergy Unknown UNKNOWN Verified 04/01/21 15:27 Produc [IODINE AND IODIDE CONTAINING PRODUC] shrimp [SHRIMP] Allergy Unknown ANAPHYLAXIS Verified 04/01/21 15:27 Review of Systems Review of Systems: Yes all other systems are reviewed and are negative PMFSH Past Medical History Attestation statement: The following information was validated with the patient. Medical History Pulmonary embolism Asthma Social History Social History Alcohol intake: current Alcohol intake frequency: 3 or more drinks per day Substance Use Type: Crack/Cocaine and Marijuana Advance Directives: No Advance Directives Information Provided: No Physical Exam Vital Signs: Vital Signs: Last Vital Signs Temp 97.7 F 01/27/23 17:36 Pulse 87 01/27/23 17:36 Resp 20 01/27/23 17:36 BP 126/84 01/27/23 17:36 Pulse Ox 98 01/27/23 17:36 O2 Del Method Room Air 01/27/23 17:36 BMI result Body Mass Index 27.4 Vital signs were normal Exam: Right hand: The patient has tenderness with palpation over the 5th MCP joint and PIP joint, patient has significant pain with minimal flexion extension of the MCP joint and abduction of the M CP joint. She also has tenderness palpation of the 5th PIP joint with minimal flexion extension secondary to pain. Her extremities neurovascular intact. Course Course Course Narrative: This is a rapid medical exam. Defer additional HPI, ROS, PE to primary provider. 42-year-old female here with injury to right 5th finger. Will check x-ray. Vitals stable Medications Administered Discontinued Medications Generic Name Dose Route Start Last Admin Trade Name Freq PRN Reason Stop Dose Admin Acetaminophen 975 mg 01/27/23 20:42 01/27/23 20:48 Acetaminophen 325 Mg Tablet PO 01/27/23 20:43 975 mg ONCE ONE Administration Oxycodone HCl 5 mg 01/27/23 20:42 01/27/23 20:49 Oxycodone Hcl Immed Release 5 Mg Tablet PO 01/27/23 20:43 5 mg ONCE STA Administration Medical Decision Making Medical Decision Making MDM Narrative: 42-year-old female who presents emergency department for evaluation of injury to her right finger. The patient description of her injury suggest that she had a hyper abduction injury. Patient has significant tenderness palpation over the 5th MCP and PIP joints with significant pain with movement of these joints. X- rays of the right hand were obtained and there was no acute fracture seen by me this was also confirmed by the radiologist. The patient's 3rd 4th and 5th fingers were rachel-taped and a ortho glass splint was made had to immobilize these 3 finger and the position of function. After the splint was applied I did re-evaluate the patient and her fingers are neurovascularly intact and she has good immobilization. The patient was advised to take ibuprofen and Tylenol and for pain not relieved by these medications she was prescribed oxycodone. Patient was given oxycodone 5 mg orally and Tylenol 975 mg orally here in the emergency department. Patient was advised to contact our occupational health clinic, [facility] for follow-up in 2-3 days. Differential Diagnosis Differential Diagnoses: The differential diagnosis associated with the presentation includes Differential diagnosis includes was not limited to fracture, sprain, strain Independent Interpretation I performed an independent interpretation of an: Plain X-Ray Interpretation: My independent interpretation of the patient's right hand x-rays as follows: No acute fracture seen Radiology Impression Discussion of test interpretation with radiology: I have reviewed the radiologist's reading. Radiologist Impression: XR hand RT min 3V IMPRESSION: Question old trauma to the base of the fifth metacarpal bone otherwise unremarkable exam. Dictated By: Yesy Gar MD Discharge Plan Discharge Clinical Impression: Sprain of metacarpophalangeal (MCP) joint of right little finger Qualifiers: Encounter type: initial encounter Qualified Code(s): S63.656A - Sprain of metacarpophalangeal joint of right little finger, initial encounter Patient Disposition: Home, Self-Care Instructions: Finger Sprain (ED) Additional Instructions: You sprained MCP joint right 5th finger. Wear the splint until you are re-evaluated by our occupational health clinic- [facility] or by your employers occupational health clinic. Take ibuprofen 200 mg pills, 2 pills every 6 hours as needed for pain. Take Tylenol (acetaminophen) 500 mg pills, 2 pills every 6 hours as needed for pain. For pain not relieved by ibuprofen or Tylenol take oxycodone 5 mg pills, 1 pill every 4 hours as needed for pain. Do not drive or work while taking this medication since they can cause sleepiness. Oxycodone is a narcotic medication that can be addicting. If you are concerned about addiction you can ask the pharmacist for less pills or do not get this prescription filled. Follow-up with your doctor in 2 days. Please return to the emergency department if your symptoms get worse or if you develop any symptoms that are concerning to you. Prescriptions: New oxycodone 5 mg tablet 5 mg PO Q4H PRN (Reason: pain) Qty: 10 0RF Rx Instructions: Patient may request partial fill; Partial Fill upon patient request. No Action ibuprofen 600 mg tablet 600 mg PO Q8H PRN (Reason: fever or pain) Qty: 20 0RF prednisone 20 mg tablet 40 mg PO DAILY Qty: 10 0RF benzonatate 100 mg capsule 200 mg PO TID PRN (Reason: cough) Qty: 20 0RF acetaminophen [Tylenol Extra Strength] 500 mg tablet 500 mg PO Q6H PRN (Reason: fever or pain) Qty: 14 0RF naproxen 500 mg tablet 500 mg PO BID PRN (Reason: pain) 10 Days Qty: 20 0RF ketorolac 10 mg tablet 10 mg PO BID PRN (Reason: pain) 5 Days Qty: 7 0RF Rx Instructions: Do not use this medication with ibuprofen or naproxen, only Tylenol if needed Referrals: [facility] [Outside] - 3 days (Right 5th finger MCP joint sprain) Stand Alone Forms: Work/School Release Interventions: ED Discharge Assessment Last Done: 01/27/23 20:50 Discharge Date/Time: 01/27/23 21:03
[2023-01-27] MEDS: Acetaminophen 325 MG TABLET 975 MG PO (20:48)
[2023-01-27] MEDS: oxyCODONE HCl Immed Release 5 MG TABLET PO (20:49)
== END 2023-01-27 21:03 | disposition home or self-care (01) ==
PROVIDERS: Emergency Provider Emergency Medicine Emergency Medical Services
DX: S63.656A Sprain of metacarpophalangeal joint of right little finger, initial encounter (principal); W23.1XXA Caught, crushed, jammed, or pinched between stationary objects, initial encounter; Y93.89 Activity, other specified; Y92.9 Unspecified place or not applicable; Y99.0 Civilian activity done for income or pay
CPT/HCPCS: 29130; 73130; 73140; 99283

== ENCOUNTER 2023-02-02 19:24 | Emergency (ER) | payer MEDICAID, SELFPAY ==
[2023-02-02 20:40] VITALS: BP 119/76; PULSE 79; RESP 18; TEMP 36.6; O2SAT 98; BMI 33.1
--- NOTE | 2023-02-02 20:47 | ED.EXTPRO ---
HPI - Extremity Problem General Chief complaint: Extremity Injury, Upper Stated complaint: RT hand pain and swelling Time Seen by Provider: 02/02/23 20:54 Source: patient and RN notes reviewed Mode of arrival: ambulatory Limitations: no limitations History of Present Illness HPI Narrative: This is a 42 year old female presenting to the emergency department due to numbness and tingling into her right hand and wrist. Patient injured her right hand on 01/27. She is diagnosed with a sprain of her MCP joint of her 5th finger. She has been unable to take her medications as she has had some insurance difficulties. She states that she has had some numbness and tingling into her hand. She states that she has been using the finger splint however states that she still is using her hand and often times does repetitious movement at work. She is only taking Tylenol without any relief. No new injury or trauma. No other complaints or concerns at this time. Location: right and upper extremity Quality: burning Radiation: none Relieving factors: nothing Exacerbating factors: nothing Associated symptoms: denies other symptoms Related Data Previous Rx's Medication Instructions Recorded benzonatate 100 mg capsule 200 mg (2 x 100 mg) PO TID PRN 04/01/21 cough #20 caps ibuprofen 600 mg tablet 600 mg PO Q8H PRN fever or pain 04/01/21 #20 tabs prednisone 20 mg tablet 40 mg (2 x 20 mg) PO DAILY #10 tabs 04/01/21 acetaminophen 500 mg tablet 500 mg PO Q6H PRN fever or pain 06/03/22 (Tylenol Extra Strength) #14 tabs naproxen 500 mg tablet 500 mg PO BID PRN pain 10 days #20 06/03/22 tabs ketorolac 10 mg tablet 10 mg PO BID PRN pain 5 days #7 09/12/22 tabs oxycodone 5 mg tablet 5 mg PO Q4H PRN pain #10 tabs 01/27/23 ibuprofen 600 mg tablet 600 mg PO Q6H PRN pain #45 tabs 02/02/23 Allergies Allergy/AdvReac Type Severity Reaction Status Date / Time Iodine and Iodide Containing Allergy Unknown UNKNOWN Verified 04/01/21 15:27 Produc [IODINE AND IODIDE CONTAINING PRODUC] shrimp [SHRIMP] Allergy Unknown ANAPHYLAXIS Verified 04/01/21 15:27 Review of Systems Review of Systems: Yes all other systems are reviewed and are negative PMFSH Past Medical History Attestation statement: The following information was validated with the patient. Medical History Pulmonary embolism Asthma Social History Social History Alcohol intake: current Alcohol intake frequency: 3 or more drinks per day Smoked in Last 30 Days: No Substance Use Type: Crack/Cocaine and Marijuana Advance Directives: No Advance Directives Information Provided: No Patient : No Physical Exam Vital Signs: Vital Signs: Last Vital Signs Temp 97.8 F 02/02/23 20:40 Pulse 79 02/02/23 20:40 Resp 18 02/02/23 20:40 BP 119/76 02/02/23 20:40 Pulse Ox 98 02/02/23 20:40 O2 Del Method Room Air 02/02/23 20:40 BMI result Body Mass Index 33.1 Const: Other: General: Awake, alert, and oriented X3. No acute distress. HEENT: Normal inspection CVS: Normal heart rate and rhythm. Pulses normal. Respiratory: No respiratory distress Skin: Warm, dry, no rashes noted to exposed skin. Normal skin color. Normal skin turgor. Extremities: Right hand and wrist with no bony deformities. Tenderness to palpation overlying the wrist. Pain with phalens and prayer test. Radial pulses 2+. Neuro: Oriented X 3. No motor deficit. No sensory deficit. Medications Administered Discontinued Medications Generic Name Dose Route Start Last Admin Trade Name Freq PRN Reason Stop Dose Admin Ibuprofen 600 mg 02/02/23 20:54 02/02/23 21:02 Ibuprofen 600 Mg Tablet PO 02/02/23 20:55 600 mg ONCE ONE Administration Medical Decision Making Medical Decision Making [facility] Narrative: 42 y/o F presenting to the ER with complaints of right hand and wrist numbness and pain. Patient states that she works at [employer] and often times has to do repetitious movement. She was seen several days ago after spraining her right finger. Patient with no obvious deformity or swelling. No overlying tenderness. No need for x-rays at this point. Discussed with patient that she likely has irritated the nerve causing her to have a type carpal tunnel syndrome. Advised to take ibuprofen and follow-up with Orthopedics. She understands agrees with plan stable for discharge. Differential Diagnosis Differential Diagnoses: The differential diagnosis associated with the presentation includes Carpal tunnel syndrome, sprain, strain, contusion, dislocation Discharge Plan Discharge Clinical Impression: Acute carpal tunnel syndrome Patient Disposition: Home, Self-Care Instructions: Carpal Tunnel Surgery (DC) Additional Instructions: Give inflammation in your wrist caused by repetitive movements. Please take ibuprofen as directed. Please call Orthopedics tomorrow for follow-up. If any new or worsening symptoms occur including but not limited to, worsening pain, please return for re-evaluation. Prescriptions: New ibuprofen 600 mg tablet 600 mg PO Q6H PRN (Reason: pain) Qty: 45 0RF No Action ibuprofen 600 mg tablet 600 mg PO Q8H PRN (Reason: fever or pain) Qty: 20 0RF prednisone 20 mg tablet 40 mg PO DAILY Qty: 10 0RF benzonatate 100 mg capsule 200 mg PO TID PRN (Reason: cough) Qty: 20 0RF acetaminophen [Tylenol Extra Strength] 500 mg tablet 500 mg PO Q6H PRN (Reason: fever or pain) Qty: 14 0RF naproxen 500 mg tablet 500 mg PO BID PRN (Reason: pain) 10 Days Qty: 20 0RF ketorolac 10 mg tablet 10 mg PO BID PRN (Reason: pain) 5 Days Qty: 7 0RF Rx Instructions: Do not use this medication with ibuprofen or naproxen, only Tylenol if needed oxycodone 5 mg tablet 5 mg PO Q4H PRN (Reason: pain) Qty: 10 0RF Rx Instructions: Patient may request partial fill; Partial Fill upon patient request. Stand Alone Forms: Work/School Release Interventions: ED Discharge Assessment Last Done: 02/02/23 21:03 Discharge Date/Time: 02/02/23 21:12
[2023-02-02] MEDS: Ibuprofen 600 MG TABLET PO (21:02)
== END 2023-02-02 21:12 | disposition home or self-care (01) ==
LOC: HO.ED 21:06
PROVIDERS: Emergency Provider Internal Medicine
DX: G56.01 Carpal tunnel syndrome, right upper limb (principal)
CPT/HCPCS: 99283; 99284

== ENCOUNTER 2023-02-16 09:33 | Outpatient (REF) | payer SELFPAY ==
--- NOTE | ~2023-02-16 | XR_ITS ---
EXAMINATION: XR HAND, RIGHT CLINICAL INFORMATION: Pain. COMPARISON: Radiographs dated 01/27/2023. TECHNIQUE: PA, lateral, and oblique views of the right hand. FINDINGS: Bony alignment and mineralization are normal. Again, the question is raised of a healed fracture of the fifth metacarpal base. No acute fracture or dislocation is seen. The proximal and distal carpal rows are intact. There is no focal soft tissue swelling, gas or foreign body. XR/XR hand RT min 3V IMPRESSION: No acute finding is noted. There is no significant interim change.
== END 2023-02-16 09:34 | disposition home or self-care (01) ==
LOC: HO.HOSX 09:33
PROVIDERS: Visit Provider Orthopaedic Surgery
DX: S63.616A Unspecified sprain of right little finger, initial encounter (principal)
CPT/HCPCS: 73130; 99202

== ENCOUNTER 2023-02-16 10:29 | Outpatient (AMB) | payer SELFPAY ==
--- NOTE | 2023-02-16 10:41 | MHC.OFFVIS ---
Intake Vital Signs 02/16/23 10:47 Height 5 ft 2 in Weight 181 lb BMI 33.1 Intake Visit Reasons: N/P- Sprain of right little finger Intake Note: Roseanna 43 yr old female who is right hand dominant presents today for her ED W/C injury follow up from 02/02/23 visit for her right pinky finger. Patient states she injured her right hand on 01/27. Patient states that she was coming to the end of her shift at work, she was walking down stairs and running her hand along the railing. She states that her 5th finger then got caught on the anchor point of the railing to the wall. She was diagnosed with a sprain of her MCP joint of her 5th finger. Patient explains that she has had some numbness and tingling into her hand since DOI. She states that she has been using the finger splint however states that she still is using her hand and often times does repetitious movement at work. She is only taking Tylenol without any relief. No new injury or trauma. Xrays updated in office. 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 On 01/27/2023 she injured her right small finger when it got caught on the [place] securing the hand rail to the wall. She reports having had radiographs at that time and was told she did not have fracture. She says she still has pain in the right small finger. After it was splinted she noted that she had more pain when she tried to make a fist. She denies locking or catching. She does report having an old fracture at the base of the 5th metacarpal years ago. [facility] Medical History Pulmonary embolism Asthma Social History (Updated 02/16/23 @ 10:52 by MARIE Bravo) Alcohol intake: current Alcohol intake frequency: 3 or more drinks per day Substance Use Type: Crack/Cocaine and Marijuana Current occupational status: employed Current occupation: rt hand Physical Exam Vital Signs: BMI result Body Mass Index 33.1 Const General: cooperative, healthy appearing and no acute distress Orientation/consciousness: oriented to person and oriented to place HEENT Head: Yes normocephalic and Yes atraumatic Eyes EOM: EOMs intact bilaterally Resp Effort & Inspection: normal respiratory effort and able to speak in complete sentences Cardio Jugular venous distension: no JVD Skin General skin exam: turgor normal Rashes: no rashes Neuro General: oriented to person and oriented to place Extrem Other: Evaluation of right Upper Extremity: Neuro: Median, ulnar, radial nerves motor and sensory intact. Vascular: Cap refill brisk. ROM: With encouragement she Can bring fingers closed to a fist and back out to extension. Smooth and painless wrist ROM Skin: No lacerations or abrasions. General: No eccymosis. No erythema or evidence of infection. She needed encouragement to get her to bring her fingers close to a fist. This did cause some discomfort over the dorsal aspect of the small and ring fingers indicating perhaps mild stiffness. She could get her hand close to a fist. She can also then fully extend all of her digits. No angular or rotational malalignment. Mild tenderness along the length of the small finger extending all the way down the 5th metacarpal to the base. No swelling or ecchymosis. Smooth and full motion. Radiographs: New radiographs three views of the right hand with attention to the small finger were taken today. I saw no fractures or dislocations. She does not appear to have significant arthritic changes at this point. There is evidence of an old healed fracture at the base of the 5th metacarpal with some mild shortening. Psych Appearance: grossly normal Affect: normal affect Attitude: cooperative Assessment & Plan Assessment & Plan (1) Sprain of right little finger: Code(s): S63.616A - Unspecified sprain of right little finger, initial encounter Plan Assessment and plan: 1. Right small finger sprain of PIP and MCP joints. Date of injury 01/27/2023 This occurred when her finger got caught on the crossbar supporting the hand rail to the wall. She reports that this is a workmen's compensation related issue. No fractures or dislocations are evident. She had some mild stiffness likely from disuse an earlier splinting. With encouragement she had full active range of motion of all digits including the small finger. I encouraged her to continue working on range of motion, and to discontinue any splinting. I have given her a note for work limiting her to light duty with a 2 lb weight limit for the next 3 weeks. We also showed her rachel taping for her small to the ring finger with busy activities. 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 She can participate in writing and typing activities. She may continue to use ibuprofen or Tylenol as needed if she has discomfort. Again went over avoiding heavy activities like opening jars etc.. She will follow-up with 1 of our PAs in 3 weeks for this workmen's compensation related issue. At that time I anticipate returning her to full duty without restrictions. Orders: Orders XR hand RT min 3V Today M79.641 - Pain in right hand Coding Level of Care Code New Pt Level 3 (74165) Diagnoses Sprain of right little finger S63.616A
[2023-02-16 10:47] VITALS: BMI 33.1
== END 2023-02-16 11:37 | disposition home or self-care (01) ==
PROVIDERS: Visit Provider Orthopaedic Surgery
DX: S63.616A Unspecified sprain of right little finger, initial encounter (principal); X50.9XXA Other and unspecified overexertion or strenuous movements or postures, initial encounter; Z04.2 Encounter for examination and observation following work accident
CPT/HCPCS: 99203

== ENCOUNTER 2023-07-03 22:57 | Emergency (ER) | payer SELFPAY ==
--- NOTE | ~2023-07-03 | XR_ITS ---
EXAMINATION: XR KNEE, RIGHT CLINICAL INFORMATION: Pain after fall COMPARISON: None available. TECHNIQUE: Four views of the right knee. FINDINGS: Osseous alignment is anatomic. Joint spaces appear relatively well-maintained. No acute fracture is seen. No significant joint effusion. XR/XR knee RT 3V IMPRESSION: No acute findings.
[2023-07-03 23:32] VITALS: BP 120/80; PULSE 94; RESP 16; TEMP 36.9; O2SAT 98; BMI 32.9
--- NOTE | 2023-07-04 00:49 | ED.GENADULT ---
HPI - General Adult General Chief complaint: Extremity Injury, Lower Stated complaint: Fall/R knee pain Time Seen by Provider: 07/04/23 00:22 Source: patient, RN notes reviewed and old records reviewed Mode of arrival: ambulatory Limitations: no limitations History of Present Illness HPI narrative: 43-year-old female presents for evaluation of right knee pain. Patient reports that 1 month ago while on vacation in [place] she ?slept on the rocks at the beach. ? She reports scraping up her right knee and landing on the right knee She states that this happened 2 days before she left and she has not seen any provider since. She reports that the abrasion is healing but she still has pain to her right knee with swelling The pain is worse with moving and walking Denies any fevers or chills Related Data Previous Rx's Medication Instructions Recorded benzonatate 100 mg capsule 200 mg (2 x 100 mg) PO TID PRN 04/01/21 cough #20 caps ibuprofen 600 mg tablet 600 mg PO Q8H PRN fever or pain 04/01/21 #20 tabs prednisone 20 mg tablet 40 mg (2 x 20 mg) PO DAILY #10 tabs 04/01/21 acetaminophen 500 mg tablet 500 mg PO Q6H PRN fever or pain 06/03/22 (Tylenol Extra Strength) #14 tabs naproxen 500 mg tablet 500 mg PO BID PRN pain 10 days #20 06/03/22 tabs ketorolac 10 mg tablet 10 mg PO BID PRN pain 5 days #7 09/12/22 tabs oxycodone 5 mg tablet 5 mg PO Q4H PRN pain #10 tabs 01/27/23 ibuprofen 600 mg tablet 600 mg PO Q6H PRN pain #45 tabs 02/02/23 naproxen 500 mg tablet 500 mg PO BID PRN pain #20 tabs 07/04/23 Allergies Allergy/AdvReac Type Severity Reaction Status Date / Time Iodine and Iodide Containing Allergy Unknown UNKNOWN Verified 07/03/23 23:40 Produc [IODINE AND IODIDE CONTAINING PRODUC] shrimp [SHRIMP] Allergy Unknown ANAPHYLAXIS Verified 07/03/23 23:40 Review of Systems Cardiovascular: Cardiovascular: Denies chest pain Respiratory: Respiratory: Denies cough Gastrointestinal: Gastrointestinal: Denies abdominal pain, Denies nausea and Denies vomiting Musculoskeletal: Musculoskeletal: Reports arthralgias, Reports joint swelling and Reports limited range of motion Integumentary/Breasts: Skin/Breast: Denies rash and Reports wounds PMFSH Past Medical History Medical History Pulmonary embolism Asthma Social History Social History (Updated 02/16/23 @ 10:52 by MARIE Bravo) Alcohol intake: current Alcohol intake frequency: 3 or more drinks per day Smoked in Last 30 Days: Yes Use of substances other than those prescribed or required for medical reasons: Yes Substance Use Type: Marijuana Advance Directives: No Advance Directives Information Provided: No Patient : No Current occupational status: employed Current occupation: rt hand Physical Exam ED Vital Signs: Vital Signs - 24 hr 07/03/23 23:32 Temperature 98.5 F Pulse Rate 94 Respiratory Rate 16 Blood Pressure 120/80 Pulse Oximetry 98 Oxygen Delivery Method Room Air BMI result Body Mass Index 32.9 Const General: healthy appearing, comfortable, no acute distress, alert and awake Nutritional Appearance: well nourished Orientation/consciousness: patient oriented x3 HENMT Head: Yes normocephalic and Yes atraumatic Eyes Eyelids: Yes eyelids normal Conjunctivae: conjunctivae normal Sclerae: sclerae normal Corneas: corneas normal Pupils: Equal, round and reactive pupils present EOM: EOMs intact bilaterally Neck Neck: Yes full ROM Resp Effort & Inspection: normal respiratory effort, able to speak in complete sentences and not labored Skin General skin exam: elasticity normal Neuro General: patient oriented x3 Cranial nerves: Yes Equal, round and reactive pupils present and Yes Bilaterally intact EOM present Cognition (Neuro): normal cognition Extrem Other: Patient has mild edema to the right anterior knee inferior to the patella. There is a healing wounds to this area. No surrounding erythema or purulent drainage. Patient is able to flex and extend the right knee. There is no right calf tenderness or popliteal region tenderness. Medications Administered Discontinued Medications Generic Name Dose Route Start Last Admin Trade Name Freq PRN Reason Stop Dose Admin Ketorolac Tromethamine 30 mg 07/04/23 00:39 07/04/23 01:03 Ketorolac Tromethamine 30 Mg/Ml Vial IM 07/04/23 00:40 30 mg ONCE ONE Administration Medical Decision Making Medical Decision Making MDM Narrative: Patient reports an injury to the right knee 1 month ago. She had not have any imaging or evaluation at that time. Plan for x-ray of the right knee. She does have a small healing wound that is scabbed over. There is no surrounding erythema or drainage, the patient is able to flex and extend the knee, she is afebrile, I have a low suspicion for septic knee. Will treat her pain with Toradol Differential Diagnosis Differential Diagnoses: The differential diagnosis associated with the presentation includes Right knee pain Arthritis Patellar fracture Tibial plateau fracture Septic knee less likely Independent Interpretation I performed an independent interpretation of an: Plain X-Ray (No obvious fracture) Radiology Impression Discussion of test interpretation with radiology: I have reviewed the radiologist's reading. (No acute finding) Discharge Plan Discharge Clinical Impression: Acute pain of right knee Patient Disposition: Home, Self-Care Instructions: Knee Pain (ED) Additional Instructions: Your x-ray does not show any evidence of fractures. Use ibuprofen/Tylenol for pain. Ice the area every 4 hours for 10-15 minutes. Elevate the leg above your heart while resting Follow-up with Orthopedics, Dr. Martinez at the number provided Prescriptions: New naproxen 500 mg tablet 500 mg PO BID PRN (Reason: pain) Qty: 20 0RF No Action ibuprofen 600 mg tablet 600 mg PO Q8H PRN (Reason: fever or pain) Qty: 20 0RF prednisone 20 mg tablet 40 mg PO DAILY Qty: 10 0RF benzonatate 100 mg capsule 200 mg PO TID PRN (Reason: cough) Qty: 20 0RF acetaminophen [Tylenol Extra Strength] 500 mg tablet 500 mg PO Q6H PRN (Reason: fever or pain) Qty: 14 0RF naproxen 500 mg tablet 500 mg PO BID PRN (Reason: pain) 10 Days Qty: 20 0RF ketorolac 10 mg tablet 10 mg PO BID PRN (Reason: pain) 5 Days Qty: 7 0RF Rx Instructions: Do not use this medication with ibuprofen or naproxen, only Tylenol if needed oxycodone 5 mg tablet 5 mg PO Q4H PRN (Reason: pain) Qty: 10 0RF Rx Instructions: Patient may request partial fill; Partial Fill upon patient request. ibuprofen 600 mg tablet 600 mg PO Q6H PRN (Reason: pain) Qty: 45 0RF Referrals: Paul Martinez MD [Physician] - (right knee pain)
[2023-07-04] MEDS: Ketorolac Tromethamine 30 MG/ML VIAL IM (01:03)
[2023-07-04 02:14] VITALS: BP 104/64; PULSE 75; RESP 18; TEMP 36.4; O2SAT 99
[2023-07-04 02:16] VITALS: BP 104/65; PULSE 75; RESP 18; TEMP 36.4; O2SAT 99
== END 2023-07-04 02:17 | disposition home or self-care (01) ==
PROVIDERS: Emergency Provider Internal Medicine
DX: M25.561 Pain in right knee (principal)
CPT/HCPCS: 73562; 96372; 99284; J1885

== ENCOUNTER 2023-10-11 18:18 | Emergency (ER) | payer SELFPAY ==
--- NOTE | ~2023-10-11 | CT_ITS ---
EXAMINATION: CT head/brain wo IV con CT cervical spine wo IV con INDICATION INFORMATION: Injury COMPARISON: CT head 09/16/2018 TECHNIQUE: Separate noncontrast CT examinations of the head and cervical spine were performed. Coronal and sagittal reformats were obtained at the acquisition workstation. This CT examination was performed using dose optimization techniques as appropriate, variously including the following: * Automated exposure control * Adjustment of mA and/or kV according to patient size (this includes techniques or standardized protocols for targeted exams where dose is matched to indication/reason for exam; i.e. extremities or head) * Use of iterative reconstruction technique DLP: 987 mGy-cm FINDINGS: HEAD: There is no evidence of acute intracranial hemorrhage or territorial infarction. Bales to white matter differentiation is well preserved. No abnormal mass effect or midline shift is seen. No extra-axial fluid collections are identified. No hydrocephalus. No significant volume loss. There is no abnormal attenuation within the brain parenchyma. The cerebellar tonsils are well positioned. No acute osseous or soft tissue abnormality. Visualized portions of the orbits are unremarkable. Small mucus retention cyst in the posterior left maxillary sinus. Remaining visualized paranasal sinuses and mastoid air cells are well-aerated. CERVICAL SPINE: No evidence of acute fracture or traumatic subluxation of the cervical spine. There is straightening of the normal cervical curvature with otherwise maintained sagittal alignment. Vertebral body heights and intervertebral disc spaces are maintained. The atlantoaxial and atlantooccipital articulations are intact. No prevertebral soft tissue swelling. There is no cervical lymphadenopathy. The visualized thyroid gland is unremarkable. The visualized lung apices are clear. CT/CT cervical spine wo IV con IMPRESSION: 1. No acute intracranial pathology. 2. No acute osseous abnormality within the cervical spine.
[2023-10-11 18:21] VITALS: BP 116/62; PULSE 76; RESP 18; TEMP 36.4; O2SAT 98; BMI 32.1
--- NOTE | 2023-10-11 19:06 | ED.GENADULT ---
HPI - General Adult General Chief complaint: Head Injury Stated complaint: object hit pt on head Time Seen by Provider: 10/11/23 19:06 Source: patient Mode of arrival: ambulatory Limitations: no limitations History of Present Illness ED Provider: Lissa Aguilar PA-C HPI narrative: Patient is a 43 year old assigned female at with no reported medical history presenting to the emergency department today with a headache. Patient states that she bent over and a piece of her ceiling came crashing down and hit her head. Patient denies any loss of consciousness with the incident. Patient denies any current dizziness, lightheadedness, abdominal pain, nausea, vomiting, fever, chills, blurry vision, double vision, loss of vision, chest pain, difficulty breathing, shortness of breath, back pain, night sweats, pain with urination, increased urinary frequency, increased urinary urgency, blood in her urine or stool, syncope or a near syncopal episode, bowel incontinence, bladder incontinence, or any other complaints at this time. Onset (ago): hour(s) Location: head Radiation: non-radiation Severity: mild Severity scale (1-10): 3 Quality: aching and dull Pain Consistency: constant Relieving factors: none Exacerbating factors: none Associated symptoms: denies other symptoms Treatments prior to arrival: none Related Data Previous Rx's ?Medication ?Instructions ?Recorded benzonatate 100 mg capsule 200 mg (2 x 100 mg) PO TID PRN 04/01/21 cough #20 caps ibuprofen 600 mg tablet 600 mg PO Q8H PRN fever or pain 04/01/21 #20 tabs prednisone 20 mg tablet 40 mg (2 x 20 mg) PO DAILY #10 tabs 04/01/21 acetaminophen 500 mg tablet 500 mg PO Q6H PRN fever or pain 06/03/22 (Tylenol Extra Strength) #14 tabs naproxen 500 mg tablet 500 mg PO BID PRN pain 10 days #20 06/03/22 tabs ketorolac 10 mg tablet 10 mg PO BID PRN pain 5 days #7 09/12/22 tabs oxycodone 5 mg tablet 5 mg PO Q4H PRN pain #10 tabs 01/27/23 ibuprofen 600 mg tablet 600 mg PO Q6H PRN pain #45 tabs 02/02/23 naproxen 500 mg tablet 500 mg PO BID PRN pain #20 tabs 07/04/23 Allergies Allergy/AdvReac Type Severity Reaction Status Date / Time Iodine and Iodide Containing Allergy Unknown UNKNOWN Verified 10/11/23 18:26 Produc [IODINE AND IODIDE CONTAINING PRODUC] shrimp [SHRIMP] Allergy Unknown ANAPHYLAXIS Verified 10/11/23 18:26 Review of Systems Constitutional: Constitutional: Reports no additional constitutional complaints, Denies chills, Denies fever(s), Reports headache(s) and Denies night sweats Eyes: Eyes: Reports no additional eye complaints, Denies blurry vision, Denies change in vision, Denies diplopia, Denies eye discharge, Denies loss of vision and Denies eye pain ENT: Denies dizziness and Reports headache(s) Cardiovascular: Cardiovascular: Reports no additional cardiovascular complaints, Denies chest pain, Denies lightheadedness, Denies Loss of Consciousness and Denies dyspnea Respiratory: Respiratory: Reports no additional respiratory complaints and Denies dyspnea Gastrointestinal: Gastrointestinal: Reports no additional gastrointestinal complaints, Denies abdominal pain, Denies melena, Denies hematochezia, Denies change in bowel habits and Denies change in stool character Genitourinary: Genitourinary: Denies hematuria, Denies urinary frequency, Denies dysuria, Denies urinary incontinence, Denies urinary hesitancy and Denies urinary urgency Musculoskeletal: Musculoskeletal: Reports no additional musculoskeletal complaints, Denies numbness and Denies tingling Neurologic: Denies dizziness, Reports headache(s), Denies loss of vision, Denies numbness and Denies tingling Psychiatric: Psychiatric: Reports no additional psychiatric complaints Endocrine: Endocrine: Reports no additional endocrine complaints Hematologic/Lymphatic: Hematologic/Lymphatic: Reports no additional hematologic/lymphatic complaints Allergic/Immunologic: Allergic/Immunologic: Reports no additional allergic/immunologic complaints ON LICENSE OF [facility] Past Medical History Attestation statement: The following information was validated with the patient. Source: old records reviewed and nursing notes reviewed Medical History Pulmonary embolism Asthma Social History Social History Alcohol intake: current Alcohol intake frequency: 3 or more drinks per day Substance Use Type: Marijuana Advance Directives: No Advance Directives Information Provided: No Do you have a plan to hurt others: No Plan Current occupational status: employed Current occupation: rt hand Physical Exam ED Vital Signs: Vital Signs - 24 hr 10/11/23 18:21 10/11/23 20:06 10/11/23 20:35 Temperature 97.6 F 97.8 F 97.8 F Pulse Rate 76 70 70 Respiratory Rate 18 16 16 Blood Pressure 116/62 128/64 128/64 Pulse Oximetry 98 99 99 Oxygen Delivery Method Room Air Room Air Room Air BMI result Body Mass Index 32.1 Const General: cooperative, no acute distress, alert and awake Nutritional Appearance: well nourished Orientation/consciousness: patient oriented x3 Limitations: no limitations HENMT Head: Yes normal to inspection and Yes atraumatic Ears: hearing grossly normal bilaterally and external ears normal General nose exam: Normal external nose present, no nasal discharge noted and no epistaxis Face and sinus: Yes normal facial exam, No abrasion and No laceration Mouth: Normal oral and palatal mucosa present, no drooling and no muffled voice Eyes General: appearance normal, both eyes and all related structures Periorbital: periorbital findings normal Eyelids: Yes eyelids normal Conjunctivae: conjunctivae normal Pupils: Equal, round and reactive pupils present EOM: EOMs intact bilaterally Neck Neck: Yes normal visual inspection, Yes full ROM and Yes no lymphadenopathy Chest Chest palpation & inspection: normal inspection of the chest Resp Effort & Inspection: normal respiratory effort and able to speak in complete sentences GI Inspection: Yes normal to inspection Neuro General: patient oriented x3 and moves all extremities Cranial nerves: Yes Equal, round and reactive pupils present Cognition (Neuro): normal cognition Extrem General: Yes normal to inspection, Yes full ROM and Yes capillary refill normal Psych Appearance: grossly normal Mental Status: mental status grossly normal Affect: normal affect Attitude: cooperative Thought process: Normal thought process present Thought content: Normal thought content present Insight: Good insight present (Psych) Medications Administered Discontinued Medications Generic Name Dose Route Start Last Admin Trade Name Freq PRN Reason Stop Dose Admin Ketorolac Tromethamine 15 mg 10/11/23 20:28 10/11/23 20:37 Ketorolac Tromethamine 15 Mg/Ml Vial IM 10/11/23 20:29 15 mg ONCE ONE Administration Medical Decision Making Medical Decision Making MDM Narrative: Patient is a 43 year old assigned female at with no reported medical history presenting to the emergency department today with a headache. Patient's physical exam was unremarkable. Patient's head and c-spine CTs showed no acute process. I explained my physical exam findings as well as all test results to the patient. I answered all questions asked by the patient. I stressed the importance of the patient taking her medication as directed (either prescribed or as the over the counter packaging recommends). I stressed the importance of the patient following up with her primary care provider. I stressed the importance of the patient returning to the emergency department immediately if her symptoms were to worsen or if she were to develop any dizziness, shortness of breath, difficulty breathing, chest pain, blurry vision, loss of vision, nausea, vomiting, abdominal pain, fever, chills, back pain, or any other complaints. Patient verbalized agreement and understanding with this treatment plan and discharge. Differential Diagnosis Differential Diagnoses: The differential diagnosis associated with the presentation includes Concussion Head injury Headache Admission/Observation Consideration of admission/observation: Escalation of care including admission/observation considered Patient would have been admitted to the hospital had her work up had any findings where hospital admission was appropriate and her clinical presentation warranted hospital admission. Independent Interpretation I performed an independent interpretation of an: CT Scan Interpretation: My interpretation is in agreement with the radiologist's impression of these imaging studies. EXAMINATION: CT head/brain wo IV con CT cervical spine wo IV con INDICATION INFORMATION: Injury COMPARISON: CT head 09/16/2018 TECHNIQUE: Separate noncontrast CT examinations of the head and cervical spine were performed. Coronal and sagittal reformats were obtained at the acquisition workstation. This CT examination was performed using dose optimization techniques as appropriate, variously including the following: * Automated exposure control * Adjustment of mA and/or kV according to patient size (this includes techniques or standardized protocols for targeted exams where dose is matched to indication/reason for exam; i.e. extremities or head) * Use of iterative reconstruction technique DLP: 987 mGy-cm FINDINGS: HEAD: There is no evidence of acute intracranial hemorrhage or territorial infarction. Bales to white matter differentiation is well preserved. No abnormal mass effect or midline shift is seen. No extra-axial fluid collections are identified. No hydrocephalus. No significant volume loss. There is no abnormal attenuation within the brain parenchyma. The cerebellar tonsils are well positioned. No acute osseous or soft tissue abnormality. Visualized portions of the orbits are unremarkable. Small mucus retention cyst in the posterior left maxillary sinus. Remaining visualized paranasal sinuses and mastoid air cells are well-aerated. CERVICAL SPINE: No evidence of acute fracture or traumatic subluxation of the cervical spine. There is straightening of the normal cervical curvature with otherwise maintained sagittal alignment. Vertebral body heights and intervertebral disc spaces are maintained. The atlantoaxial and atlantooccipital articulations are intact. No prevertebral soft tissue swelling. There is no cervical lymphadenopathy. The visualized thyroid gland is unremarkable. The visualized lung apices are clear. CT/CT head/brain wo IV con IMPRESSION: 1. No acute intracranial pathology. 2. No acute osseous abnormality within the cervical spine. Dictated By: Natacha Daniel Signed By: Electronically signed by Natacha Daniel 10/11/232016 Radiology Impression Discussion of test interpretation with radiology: I have reviewed the radiologist's reading. Discharge Plan Discharge Clinical Impression: Concussion Patient Disposition: Home, Self-Care Instructions: Concussion (ED) Additional Instructions: Follow up with your primary care provider. Return to the emergency department immediately if your symptoms worsen or if you develop any dizziness, shortness of breath, difficulty breathing, chest pain, blurry vision, loss of vision, nausea, vomiting, abdominal pain, fever, chills, back pain, or any other complaints. Prescriptions: No Action ibuprofen 600 mg tablet 600 mg PO Q8H PRN (Reason: fever or pain) Qty: 20 0RF prednisone 20 mg tablet 40 mg PO DAILY Qty: 10 0RF benzonatate 100 mg capsule 200 mg PO TID PRN (Reason: cough) Qty: 20 0RF acetaminophen [Tylenol Extra Strength] 500 mg tablet 500 mg PO Q6H PRN (Reason: fever or pain) Qty: 14 0RF naproxen 500 mg tablet 500 mg PO BID PRN (Reason: pain) 10 Days Qty: 20 0RF ketorolac 10 mg tablet 10 mg PO BID PRN (Reason: pain) 5 Days Qty: 7 0RF Rx Instructions: Do not use this medication with ibuprofen or naproxen, only Tylenol if needed naproxen 500 mg tablet 500 mg PO BID PRN (Reason: pain) Qty: 20 0RF oxycodone 5 mg tablet 5 mg PO Q4H PRN (Reason: pain) Qty: 10 0RF Rx Instructions: Patient may request partial fill; Partial Fill upon patient request. ibuprofen 600 mg tablet 600 mg PO Q6H PRN (Reason: pain) Qty: 45 0RF Referrals: [facility] [place] Family Medicine [Provider Group] (Call to establish and follow up with a primary care provider. If you already have a primary care provider, please follow up with them.) [facility] [Provider Group] [facility] Primary [facility] [Provider Group] Stand Alone Forms: Work/School Release Interventions: ED Discharge Assessment Last Done: 10/11/23 20:35 Discharge Date/Time: 10/11/23 20:40 Print Language: Lithuanian
[2023-10-11 20:06] VITALS: BP 128/64; PULSE 70; RESP 16; TEMP 36.6; O2SAT 99
[2023-10-11 20:35] VITALS: BP 128/64; PULSE 70; RESP 16; TEMP 36.6; O2SAT 99
[2023-10-11] MEDS: Ketorolac Tromethamine 15 MG/ML VIAL IM (20:37)
== END 2023-10-11 20:40 | disposition home or self-care (01) ==
PROVIDERS: Emergency Provider Emergency Medicine Emergency Medical Services
DX: S06.0X0A Concussion without loss of consciousness, initial encounter (principal); W20.8XXA Other cause of strike by thrown, projected or falling object, initial encounter; Y93.9 Activity, unspecified; Y92.9 Unspecified place or not applicable; Y99.9 Unspecified external cause status; R51.9 Headache, unspecified; J45.909 Unspecified asthma, uncomplicated
CPT/HCPCS: 70450; 72125; 96372; 99283; 99284; J1885

== ENCOUNTER 2023-10-21 21:56 | Emergency (ER) | payer MEDICAID, SELFPAY ==
--- NOTE | 2023-10-21 | ECG_ITS ---
Test Reason : ABD PAIN Blood Pressure : / mmHG Vent. Rate : 083 BPM Atrial Rate : 083 BPM P-R Int : 132 ms QRS Dur : 078 ms QT Int : 368 ms P-R-T Axes : 052 033 049 degrees QTc Int : 432 ms Normal sinus rhythm Normal ECG When compared to the previous EKG of No significant changes seen Referred By: Generic ED Physician Electronically Signed By:STACEY BARLOW MD
--- NOTE | ~2023-10-21 | CT_ITS ---
EXAMINATION: CT ABDOMEN AND PELVIS WITHOUT CONTRAST CLINICAL INFORMATION: Right upper quadrant pain. COMPARISON: 09/12/2022 TECHNIQUE: Multidetector volumetric imaging was performed from the superior aspect of the liver through the pubic symphysis. Sagittal and coronal reformatted images were obtained on the technologist's workstation. This CT examination was performed using dose optimization techniques as appropriate, variously including the following: *Automated exposure control *Adjustment of mA and/or kV according to patient size (this includes techniques or standardized protocols for targeted exams where dose is matched to indication/reason for exam; i.e. extremities or head) *Use of iterative reconstruction technique DLP: 662 mGy-cm FINDINGS: LUNG BASES: There is atelectatic change and/or scarring at the anterior lung bases. LIVER, GALLBLADDER, AND BILIARY TREE: Scattered small hepatic cysts are again seen. There is no intrahepatic biliary duct dilatation. The gallbladder is unremarkable with no evidence of radiopaque gallstones, gallbladder wall thickening, or obvious pericholecystic inflammatory changes. PANCREAS: Unremarkable. SPLEEN: Unremarkable. ADRENAL GLANDS: Unremarkable. KIDNEYS AND URETERS: The kidneys are normal in size, shape, and attenuation. No hydronephrosis, hydroureter, or calculi seen. No perinephric stranding. BLADDER: Unremarkable. GASTROINTESTINAL TRACT: The small and large bowel are unremarkable. The appendix is unremarkable. ABDOMINAL WALL: No significant hernia is appreciated. LYMPH NODES: Normal. VASCULAR: Unremarkable. PELVIC VISCERA: Unremarkable. OSSEOUS STRUCTURES: Unremarkable. CT/CT abdomen pelvis wo IV con IMPRESSION: No acute intra-abdominal process seen. Fleischner guidelines were followed.
[2023-10-21 22:33] VITALS: BP 118/87; PULSE 84; RESP 18; TEMP 36.3; O2SAT 100; BMI 32.2
--- NOTE | 2023-10-21 22:58 | MHC.EDTECH ---
Patient ekg taken and was read by Provider ,blood drawn and sent to lab .
[2023-10-21 22:59] LABS: MANUAL DIFF FLAG NO
[2023-10-21 23:00] LABS: Basophils Absolute Auto 0.1 X10*3/uL (0.0-0.2); Basophils Percent Auto 0.7 % (0-2); Eosinophils Absolute Auto 0.3 X10*3/uL (0.0-0.4); Eosinophils Percent Auto 3.9 % (0-4); Hematocrit 32.4 % (37.0-47.0); Hemoglobin 10.4 g/dl (12.0-16.0); Imm Gran Abs Auto 0.02 X10*3/uL (0.00-0.03); Imm Gran Pct Auto 0.2 % (0.0-0.4); Lymphocytes Absolute Auto 2.3 X10*3/uL (1.2-4.9); Lymphocytes Percent Auto 26.8 % (20-40); Mean Corpuscular HGB Conc 32.1 g/dl (31.0-35.0); Mean Corpuscular Hemoglobin 23.7 pg (27.0-33.0); Monocytes Absolute Auto 0.5 X10*3/uL (0.1-1.2); Monocytes Percent Auto 6.4 % (2-11); Neutrophils Absolute Auto 5.2 x10*3/uL (2.0-8.3); Platelet Count 212 X10*3/uL (160-400); Red Blood Count 4.38 X10*6/uL (4.20-5.50); Red Cell Distribution Width 15.6 % (11.0-16.0); White Blood Count 8.4 X10*3/uL (4.8-10.8)
[2023-10-21 23:18] LABS: Alanine Aminotransferase 14 U/L (0-31); Albumin Level 4.2 g/dL (3.5-5.0); Alkaline Phosphatase 115 U/L (39-117); Anion Gap 15 (12-20); Aspartate Amino Transferase 20 U/L (5-31); Bilirubin Direct 0.2 mg/dL (0.0-0.5); Bilirubin Total 0.5 mg/dL (0.0-1.0); Blood Urea Nitrogen 17 mg/dL (9-16); Carbon Dioxide 24 mmol/L (22-29); Chloride 105 mmol/L (96-108); Creatinine Clr Calc Pharmacy 89.7; Estimated Glomerular Filt Rate > 60; Glucose Random 114 mg/dL (60-115); Lipase 31 U/L (8-78); Potassium 3.2 mmol/L (3.3-5.1); Sodium 141 mmol/L (135-145); Total Protein 7.1 g/dL (6.5-8.0)
--- NOTE | 2023-10-22 04:17 | ED_ITS ---
HPI - Abdominal Pain General Chief Complaint: Abdominal Pain Stated Complaint: neck pain, dizziness, flank pain Time Seen by Provider: 10/22/23 04:09 Source: patient Mode of arrival: ambulatory Limitations: no limitations History of Present Illness ED Provider: Dr. Jessika Doshi HPI narrative: Patient comes to the emergency room complaining of right upper quadrant pain. Patient states that it has been going on for several months. But now more often return that the patient eats, the pain exacerbates. Patient denies nausea vomiting or diarrhea. Related Data Previous Rx's ?Medication ?Instructions ?Recorded benzonatate 100 mg capsule 200 mg (2 x 100 mg) PO TID PRN 04/01/21 cough #20 caps ibuprofen 600 mg tablet 600 mg PO Q8H PRN fever or pain 04/01/21 #20 tabs prednisone 20 mg tablet 40 mg (2 x 20 mg) PO DAILY #10 tabs 04/01/21 acetaminophen 500 mg tablet 500 mg PO Q6H PRN fever or pain 06/03/22 (Tylenol Extra Strength) #14 tabs naproxen 500 mg tablet 500 mg PO BID PRN pain 10 days #20 06/03/22 tabs ketorolac 10 mg tablet 10 mg PO BID PRN pain 5 days #7 09/12/22 tabs oxycodone 5 mg tablet 5 mg PO Q4H PRN pain #10 tabs 01/27/23 ibuprofen 600 mg tablet 600 mg PO Q6H PRN pain #45 tabs 02/02/23 naproxen 500 mg tablet 500 mg PO BID PRN pain #20 tabs 07/04/23 ibuprofen 600 mg tablet 600 mg PO QID PRN fever or pain 10/22/23 #20 tabs Allergies Allergy/AdvReac Type Severity Reaction Status Date / Time Iodine and Iodide Containing Allergy Unknown UNKNOWN Verified 10/21/23 22:39 Produc [IODINE AND IODIDE CONTAINING PRODUC] shrimp [SHRIMP] Allergy Unknown ANAPHYLAXIS Verified 10/21/23 22:39 Review of Systems Review of Systems Constitutional : No Weight loss, No Fever, No Chills, No Night Sweats, No Fatigue, No Malaise ENT/Mouth : No Hearing loss, No Ear Pain, No Nasal Congestion, No Sinus Pain, No Hoarseness, complaining of sore throat, No Rhinorrhea, No Swallowing Difficulty Eyes: No Eye Pain, No Swelling, No Redness, No Foreign Body, No Discharge, No Vision Changes Cardiovascular : No Chest Pain, No SOB, No Dyspnea on Exertion, No Orthopnea, No Edema, No Palpitations Respiratory : No Cough, No Sputum, No Wheezing, No Smoke Exposure, No Dyspnea Gastrointestinal : No Nausea, No Vomiting, No Diarrhea, No Constipation, complaining of right upper quadrant/epigastric pain, no melena Genitourinary : no irregular bleeding, No Dysuria, No Urinary Frequency, No Hematuria, No Urinary Incontinence, No Urgency, No Flank Pain, No Urinary Flow Changes, No Hesitancy Musculoskeletal : Healing from a head neck injury for which she was already seen a week ago No joint pain, No Myalgias, No Joint Swelling Skin : No Skin Lesions, No rash Neuro : No Weakness, No Numbness, No Paresthesias, No Loss of Consciousness, No Dizziness, No Headache Psych : No Anxiety/Panic, No Depression, No SI/HI/AH/VH, No Social Issues, Heme/Lymph: No Bruising, No Bleeding,No Lymphadenopathy Endocrine : No Polyuria, No Polydipsia, No Temperature Intolerance [facility] Past Medical History Medical History Pulmonary embolism Asthma Social History Social History Alcohol intake: current Alcohol intake frequency: 3 or more drinks per day Smoked in Last 30 Days: No Use of substances other than those prescribed or required for medical reasons: No Substance Use Type: Marijuana Advance Directives: No Advance Directives Information Provided: Yes Do you have a plan to hurt others: No Plan Patient : No Current occupational status: employed Current occupation: rt hand Physical Exam ED Vital Signs: Vital Signs - 24 hr 10/21/23 22:33 10/22/23 04:34 10/22/23 05:49 Temperature 97.3 F 97.2 F 97.5 F Pulse Rate 84 74 80 Respiratory Rate 18 17 17 Blood Pressure 118/87 138/76 102/56 L Pulse Oximetry 100 99 98 Oxygen Delivery Method Room Air Room Air Room Air BMI result Body Mass Index 32.2 Const Other: Appearance: Alert. Oriented X3. No acute distress. Well-appearing Eyes: Pupils equal, round and reactive to light. ENT: Pharynx normal. Neck: Normal inspection. Neck supple. No lymph nodes noted. No crepitus CVS: Normal heart rate and rhythm. Pulses normal. Normal S1 and S2 Respiratory: No respiratory distress. Breath sounds normal. No Wheezing. No rales Abdomen: Soft , negative Bay sign, no rebound no guarding no rigidity, mild discomfort to palpation in right upper quadrant epigastric area Skin: Skin warm and dry. Normal skin color. Normal skin turgor. Extremities: No lower extremity edema. No Lacerations. No Rash Neuro: Oriented X 3. No motor deficit. No sensory deficit. Moving all extremities. No slurred speech. CN 2 through 12 grossly intact Psych: calm, cooperative, normal affect Course Course Course Narrative: My interpretation of labs, normal hematology, chemistry shows potassium slightly decreased at 3.2, given p.o. supplementation. LFTs within normal limits. -CT scan can not be done with contrast, patient has allergy to contrast CT scan of the abdomen pending -strep test pending Medical Decision Making Medical Decision Making [facility] Narrative: -my interpretation of labs, normal hematology, chemistry shows potassium 3.2, repleted p.o. urinalysis negative for UTI, urine toxicology positive for opiates, oxycodone, cocaine and marijuana -strep test negative -patient received p.o. potassium and also IV ketorolac -CT scan pending, given patient's normal LFTs, is more likely that patient has musculoskeletal pain, costochondritis -sign-out given to my colleague Dr. Bassett Differential Diagnosis Differential Diagnoses: The differential diagnosis associated with the presentation includes (Acute cholecystitis, pancreatitis, costochondritis) Admission/Observation Consideration of admission/observation: Escalation of care including admission/observation considered (Given patient's complaints initial presentation, observation was considered) Lab Data [facility] Lab Attestation statement: I reviewed the patient's lab results. 10/21/23 22:55 10/21/23 22:55 Labs: Lab Results 10/21/23 10/22/23 Range/Units 22:55 04:28 WBC 8.4 (4.8-10.8) X10*3/uL RBC 4.38 (4.20-5.50) X10*6/uL Hgb 10.4 L (12.0-16.0) g/dl Hct 32.4 L (37.0-47.0) % MCV 74.0 L (80.0-98.0) fL MCH 23.7 L (27.0-33.0) pg MCHC 32.1 (31.0-35.0) g/dl RDW 15.6 (11.0-16.0) % Plt Count 212 (160-400) X10*3/uL MPV 12.0 (9.4-12.3) fL Immature Gran % (Auto) 0.2 (0.0-0.4) % Neut % (Auto) 62.0 (45-73) % Lymph % (Auto) 26.8 (20-40) % Coos % (Auto) 6.4 (2-11) % Eos % (Auto) 3.9 (0-4) % Baso % (Auto) 0.7 (0-2) % Lymph # (Auto) 2.3 (1.2-4.9) X10*3/uL Coos # (Auto) 0.5 (0.1-1.2) X10*3/uL Eos # (Auto) 0.3 (0.0-0.4) X10*3/uL Baso # (Auto) 0.1 (0.0-0.2) X10*3/uL Abs Immat Gran (auto) 0.02 (0.00-0.03) X10*3/uL Absolute Neuts (auto) 5.2 (2.0-8.3) x10*3/uL Absolute Nucleated RBC 0.000 (0.0-0.012) X10*3/uL Nucleated RBC % (auto) 0.0 (0.0-0.2) /100WBC Sodium 141 (135-145) mmol/L Potassium 3.2 L (3.3-5.1) mmol/L Chloride 105 (96-108) mmol/L Carbon Dioxide 24 (22-29) mmol/L Anion Gap 15 (12-20) BUN 17 H (9-16) mg/dL Creatinine 0.80 (0.5-1.4) mg/dL Estim Creat Clear Calc 89.7 Estimated GFR > 60 Random Glucose 114 (60-115) mg/dL Calcium 9.0 (8.4-10.2) mg/dL Total Bilirubin 0.5 (0.0-1.0) mg/dL Direct Bilirubin 0.2 (0.0-0.5) mg/dL AST 20 (5-31) U/L ALT 14 (0-31) U/L Alkaline Phosphatase 115 (39-117) U/L Total Protein 7.1 (6.5-8.0) g/dL Albumin 4.2 (3.5-5.0) g/dL Lipase 31 (8-78) U/L Urine Color Yellow Urine Appearance Turbid Urine pH 7.0 (5.0-9.0) Ur Specific Leonore 1.025 (1.005-1.025) Urine Protein Negative (Neg-Trace) mg/dL Urine Glucose (UA) Negative (Negative) mg/dL Urine Ketones Negative (Negative) mg/dL Urine Blood Negative (Negative) Urine Nitrite Negative (Negative) Ur Leukocyte Esterase Negative (Negative) Urine Test NEGATIVE (NEGATIVE) Urine Opiates Screen POSITIVE H (Not Detect) Ur Buprenorphine Scrn Not Detected (Not Detect) ng/mL Ur Oxycodone Screen Positive H (Not Detect) ng/mL Urine Methadone Screen Not Detected (Not Detect) ng/mL Urine Fentanyl Screen Not Detected (Not Detect) Ur Barbiturates Screen Not Detected (Not Detect) Ur Phencyclidine Scrn Not Detected (Not Detect) Ur Amphetamines Screen Not Detected (Not Detect) U Benzodiazepines Scrn Not Detected (Not Detect) Urine Cocaine Screen POSITIVE H (Not Detect) U Marijuana (THC) Screen POSITIVE H (Not Detect) S. pyogenes GrpA KATHRYN Negative (Negative) Medications Administered Discontinued Medications Generic Name Dose Route Start Last Admin Trade Name Freq PRN Reason Stop Dose Admin Ketorolac Tromethamine 30 mg 10/22/23 04:16 10/22/23 04:25 Ketorolac Tromethamine 30 Mg/Ml Vial IVPUSH 10/22/23 04:17 30 mg ONCE ONE Administration Potassium Chloride 40 meq 10/22/23 04:21 10/22/23 04:33 Potassium Chloride Packet 20 Meq Packet PO 10/22/23 04:22 40 meq ONCE ONE Administration Critical Care Time Critical Care Time Critical Care Time: Yes Total Critical Care Time: 30 Attestation: I have personally provided critical care time. Time includes review of lab data, radiology results, discussion with consultants, and monitoring for potential decompensation. Intervention performed as documented. Discharge Plan Discharge Clinical Impression: Costochondritis, Abdominal pain, Acute viral pharyngitis Patient Disposition: Still a Patient Instructions: Pharyngitis (ED), Costochondritis (ED), Abdominal Pain (ED) Additional Instructions: Please follow-up with your primary care physician tomorrow. If you have any worsening or new symptoms, please return to the emergency room or call 911 Prescriptions: New ibuprofen 600 mg tablet 600 mg PO QID PRN (Reason: fever or pain) Qty: 20 0RF No Action ibuprofen 600 mg tablet 600 mg PO Q8H PRN (Reason: fever or pain) Qty: 20 0RF prednisone 20 mg tablet 40 mg PO DAILY Qty: 10 0RF benzonatate 100 mg capsule 200 mg PO TID PRN (Reason: cough) Qty: 20 0RF acetaminophen [Tylenol Extra Strength] 500 mg tablet 500 mg PO Q6H PRN (Reason: fever or pain) Qty: 14 0RF naproxen 500 mg tablet 500 mg PO BID PRN (Reason: pain) 10 Days Qty: 20 0RF ketorolac 10 mg tablet 10 mg PO BID PRN (Reason: pain) 5 Days Qty: 7 0RF Rx Instructions: Do not use this medication with ibuprofen or naproxen, only Tylenol if needed naproxen 500 mg tablet 500 mg PO BID PRN (Reason: pain) Qty: 20 0RF oxycodone 5 mg tablet 5 mg PO Q4H PRN (Reason: pain) Qty: 10 0RF Rx Instructions: Patient may request partial fill; Partial Fill upon patient request. ibuprofen 600 mg tablet 600 mg PO Q6H PRN (Reason: pain) Qty: 45 0RF Print Language: Macanese
[2023-10-22] MEDS: Ketorolac Tromethamine 30 MG/ML VIAL IVPUSH (04:25)
[2023-10-22] MEDS: Potassium Chloride Packet 20 MEQ PACKET 40 MEQ PO (04:33)
[2023-10-22 04:34] VITALS: BP 138/76; PULSE 74; RESP 17; TEMP 36.2; O2SAT 99
[2023-10-22 04:37] LABS: Appearance Urine Turbid; Color Urine Yellow; Glucose Urine UA Negative (Negative); Leukocyte Esterase Urine Negative (Negative); Nitrite Urine Negative (Negative); Specific Gravity - Urine 1.025 (1.005-1.025); Urine Blood Negative (Negative); Urine Ketones Negative (Negative); Urine Protein Negative (Neg-Trace)
[2023-10-22 04:43] LABS: IDNOW Serial# 08D9AD1C; Strep A Nucleic Acid Negative (Negative)
[2023-10-22 04:53] LABS: Amphetamine Screen Urine Not Detected (Not Detect); Barbiturates, Urine Not Detected (Not Detect); Benzodiazepines Screen Urine Not Detected (Not Detect); Buprenorphine Scr Not Detected (Not Detect); Cannabinoid Screen Urine POSITIVE (Not Detect); Cocaine Screen Urine POSITIVE (Not Detect); Fentanyl, urine Not Detected (Not Detect); Methadone Screen, Urine Not Detected (Not Detect); Opiate Screen Urine POSITIVE (Not Detect); Oxycodone Screen Urine Positive (Not Detect); Phencyclidine Screen Urine Not Detected (Not Detect)
--- NOTE | 2023-10-22 05:09 | PC.NURSE ---
pt from home, a&ox4, respirations even and unlabored. pt reporting onset of right sided lower quadrant pain starting yesterday, denies any falls or trauma. denies nausea, vomiting diarrhea. 20G placed in left ac, pt medicated per jun.
[2023-10-22 05:47] LABS: UPreg QC Valid YES; Urine Pregnancy NEGATIVE (NEGATIVE)
[2023-10-22 05:49] VITALS: BP 102/56; PULSE 80; RESP 17; TEMP 36.4; O2SAT 98
== END 2023-10-22 09:38 | disposition home or self-care (01) ==
PROVIDERS: Emergency Medicine; Emergency Provider Emergency Medicine Emergency Medical Services
DX: M94.0 Chondrocostal junction syndrome [Tietze] (principal); J02.9 Acute pharyngitis, unspecified; R10.11 Right upper quadrant pain; M54.2 Cervicalgia
CPT/HCPCS: 36415; 74176; 80048; 80076; 80307; 81003; 81025; 83690; 85025; 87651; 93005; 96374; 99285; J1885

== ENCOUNTER → 2023-10-21 22:44 | Outpatient (BNV) | payer SELFPAY | PROVIDERS: Emergency Provider Emergency Medicine Emergency Medical Services; Visit Provider Internal Medicine Cardiovascular Disease | DX: R10.9 Unspecified abdominal pain (principal) | CPT/HCPCS: 93010 ==

== ENCOUNTER 2023-11-19 15:56 | Emergency (ER) | payer MEDICAID, SELFPAY ==
--- NOTE | ~2023-11-19 | XR_ITS ---
EXAMINATION: XR HAND, RIGHT CLINICAL INFORMATION: Laceration to third and fourth digits. COMPARISON: None available. TECHNIQUE: PA, lateral, and oblique views of the right hand. FINDINGS: Bones have normal alignment in the hand and wrist. The joint spaces are maintained. No evidence of acute fracture or subluxation. No evidence of radiopaque foreign body in this patient with history of laceration with glass. XR/XR hand RT min 3V IMPRESSION: No acute osseous injury in the right hand or wrist.
--- NOTE | ~2023-11-19 | XR_ITS ---
EXAMINATION: XR FOREARM, RIGHT CLINICAL INFORMATION: Question foreign body. COMPARISON: None available. TECHNIQUE: AP and lateral views of the right forearm were obtained. FINDINGS: The bones and soft tissues are normal. No fracture. Imaged portions of the elbow and wrist are unremarkable. No radiopaque foreign object is identified. XR/XR forearm RT 2V IMPRESSION: No fracture or dislocation. No radiopaque foreign object.
[2023-11-19 16:01] VITALS: BP 135/87; PULSE 101; RESP 16; TEMP 36.2; O2SAT 95; BMI 31.1
--- NOTE | 2023-11-19 16:02 | ED_ITS ---
HPI - Extremity Injury (Upper) General Chief Complaint: Wound/Laceration Stated Complaint: hand went through glass Time Seen by Provider: 11/19/23 16:14 Source: patient Mode of arrival: ambulatory Limitations: no limitations History of Present Illness HPI narrative: 43-year-old female with no significant past medical history presents to the emergency department for evaluation after receiving a laceration from broken glass door. She reports that she was knocking on the glass of her front door for her to open the door as it was locked in her hand went through the glass. She reports laceration on her right index and middle finger and right volar forearm. She states she has noticed small pieces of glass falling from her body as she is here in the emergency department. She is unsure of her last tetanus shot. She denies any paresthesias but reports significant discomfort with range of motion Pertinent positives and negatives discussed in HPI Related Data Previous Rx's ?Medication ?Instructions ?Recorded benzonatate 100 mg capsule 200 mg (2 x 100 mg) PO TID PRN 04/01/21 cough #20 caps ibuprofen 600 mg tablet 600 mg PO Q8H PRN fever or pain 04/01/21 #20 tabs prednisone 20 mg tablet 40 mg (2 x 20 mg) PO DAILY #10 tabs 04/01/21 acetaminophen 500 mg tablet 500 mg PO Q6H PRN fever or pain 06/03/22 (Tylenol Extra Strength) #14 tabs naproxen 500 mg tablet 500 mg PO BID PRN pain 10 days #20 06/03/22 tabs ketorolac 10 mg tablet 10 mg PO BID PRN pain 5 days #7 09/12/22 tabs oxycodone 5 mg tablet 5 mg PO Q4H PRN pain #10 tabs 01/27/23 ibuprofen 600 mg tablet 600 mg PO Q6H PRN pain #45 tabs 02/02/23 naproxen 500 mg tablet 500 mg PO BID PRN pain #20 tabs 07/04/23 acetaminophen 500 mg tablet 1,000 mg (2 x 500 mg) PO Q6H PRN 10/22/23 (Tylenol Extra Strength) fever or pain #20 tabs cyclobenzaprine 10 mg tablet 10 mg PO TID PRN pain, muscle 10/22/23 spasm #15 tabs ibuprofen 600 mg tablet 600 mg PO QID PRN fever or pain 10/22/23 #20 tabs oxycodone 5 mg tablet 5 mg PO Q6H PRN pain #10 tabs 10/22/23 cephalexin 500 mg capsule 500 mg PO BID 7 days #14 caps 11/19/23 Allergies Allergy/AdvReac Type Severity Reaction Status Date / Time Iodine and Iodide Containing Allergy Unknown UNKNOWN Verified 11/19/23 16:03 Produc [IODINE AND IODIDE CONTAINING PRODUC] shrimp [SHRIMP] Allergy Unknown ANAPHYLAXIS Verified 11/19/23 16:03 Review of Systems Review of Systems: Yes all other systems are reviewed and are negative [facility] Past Medical History Medical History Pulmonary embolism Asthma Social History Social History Alcohol intake: current Alcohol intake frequency: 3 or more drinks per day Substance Use Type: Marijuana Advance Directives: No Advance Directives Information Provided: No Current occupational status: employed Current occupation: rt hand Physical Exam Vital Signs: Vital Signs: Last Vital Signs Temp 98.0 F 11/19/23 16:40 Pulse 83 11/19/23 16:40 Resp 20 11/19/23 16:40 BP 122/88 11/19/23 16:40 Pulse Ox 99 11/19/23 16:40 O2 Del Method Room Air 11/19/23 16:40 BMI result Body Mass Index 31.1 Nursing notes and vital signs reviewed. GENERAL APPEARANCE: A&0 x 4, generally well appearing, no acute distress HENMT: Normal to inspection, atraumatic, face symmetrical. Normal external ears, nose, and oropharynx clear. EYE: PERRLA, EOM intact, structures appear normal NECK: Supple without stiffness or restricted ROM. HEART: Normal rate and regular rhythm, normal S1/S2, no M/R/G LUNGS: LS CTA, moving air well. Able to speak in complete sentences. No crackles, wheezes, or rhonchi auscultated BACK: No CVAT, no obvious deformity EXTREMITIES: Laceration to the mid phalanges of the right 2nd and 3rd fingers the dorsal aspect. Laceration at mid forearm, volar side. Normal capillary refill. NEUROLOGICAL: Alert and oriented, moving all 4 extremities with equal strength. CN not formally tested but appearing grossly intact. Observed to ambulate with normal gait. Cognition normal SKIN: Warm and dry without any lesions, rash, or visible sores Course Course Course Narrative: This is a Rapid Medical Examination (RME) performed by Jasen Chang PA-C in triage. Full HPI, ROS, assessment and treatment plan per primary provider in the Main ED. 43 yo right hand dominant female presents to the ER for evaluation of lacerations to the index and middle fingers on her right hand after she broke glass accidentally while knocking on a window. She also sustained a small lac to her proximal forearm. FROM the digits with active bleeding in triage. Plan: XR hand and suture repair, TDap Medications Administered Discontinued Medications Generic Name Dose Route Start Last Admin Trade Name Freq PRN Reason Stop Dose Admin Acetaminophen 975 mg 11/19/23 16:34 11/19/23 16:43 Acetaminophen 325 Mg Tablet PO 11/19/23 16:35 975 mg ONCE ONE Administration Diphtheria/Tetanus/Acell Pertussis 0.5 ml 11/19/23 16:01 11/19/23 16:43 Diphth,Pertus(Acell),Tet Adult 0.5 Ml Syringe IM 11/19/23 16:02 0.5 ml .ONCE ONE Administration Ibuprofen 600 mg 11/19/23 16:34 11/19/23 16:43 Ibuprofen 600 Mg Tablet PO 11/19/23 16:35 600 mg ONCE ONE Administration Lidocaine HCl 30 ml 11/19/23 16:41 11/19/23 17:26 Lidocaine Hcl 1 % 10 Ml Vial INFILTRATI 11/19/23 16:42 30 ml ONCE ONE Administration Medical Decision Making Medical Decision Making MDM Narrative: Old records reviewed for previous imaging, lab studies, ECGs, and notes. Patient was assessed the emergency department with no acute distress or toxicity noted. X-ray right hand and forearm completed showing no evidence of radiopaque foreign bodies, per my interpretation. Lacerations cleansed extensively with no evidence of retained foreign body. Laceration sutured closed. Patient tolerated without incident, see procedure note for further details. 7 day course of cephalexin since the patient preferred pharmacy for infection prevention. Patient educated that there is possibility of retained foreign bodies as it is difficult to ascertain whether or not there is glass in the wound as it is not radiopaque. Patient reports understanding with no unanswered questions at this time. Patient is safe for discharge at this time with plan for [id number] Tylenol and/or NSAID such as ibuprofen or naproxen for fever/discomfort with dosing as per packaging. HPI, PE, di agnostics, and plan discussed with patient and family with no unanswered questions at this time. Strict return precautions given to return to the emergency department with new, worsening, or concerning emergent symptoms. Recommended to follow-up with there primary care provider in 24-48 hours for further treatment and management. Differential Diagnosis Differential Diagnoses: The differential diagnosis associated with the presentation includes But not limited to fracture, dislocation, strain, sprain, tendon or ligament injury, laceration Independent Interpretation I performed an independent interpretation of an: Plain X-Ray External Record Review External record reviewed: Prior outpatient labs Prescription Management Narcotic pain medication was considered, however; based on exam, side effects, and high-risk of addiction was deemed necessary at this time. Procedures Laceration Laceration 1: Site: hand (3rd finger mid phalange, dorsal) Side (If applicable): right Size (cm): 1 Description: flap Depth: simple, single layer Local Anesthetic: lidocaine 1% Amount of anesthesia used (mL): 5 Pre-repair: wound explored, irrigated extensively and deep structures intact Skin layer closed with: nylon Size (cm): 4-0 Number of sutures: 4 Technique: simple, interrupted Laceration 2: Site: hand (2nd finger mid phalange, dorsal) Side (If applicable): right Size (cm): 1 Description: flap Depth: simple, single layer Local Anesthetic: lidocaine 1% Amount of anesthesia used (mL): 5 Pre-repair: wound explored, irrigated extensively and deep structures intact Skin layer closed with: nylon Size (cm): 4-0 Number of sutures: 1 Technique: simple, interrupted Laceration 3: Site: upper extremity (forearm) Side (If applicable): right Size (cm): 1 Description: linear Depth: simple, single layer Local Anesthetic: lidocaine 1% Amount of anesthesia used (mL): 3 Pre-repair: wound explored, irrigated extensively and deep structures intact Skin layer closed with: nylon Size (cm): 4-0 Number of sutures: 2 Technique: simple, interrupted Discharge Plan Discharge Clinical Impression: Laceration of finger of right hand, Laceration of forearm, right Patient Disposition: Home, Self-Care Instructions: Cephalexin (By mouth), Care For Your Stitches (ED), Laceration (ED), Finger Laceration (ED) Additional Instructions: Please return in 7-10 days for suture removal. Please keep your wound clean and dry to prevent infection complete course of antibiotics. Prescriptions: New cephalexin 500 mg capsule 500 mg PO BID 7 Days Qty: 14 0RF No Action ibuprofen 600 mg tablet 600 mg PO Q8H PRN (Reason: fever or pain) Qty: 20 0RF prednisone 20 mg tablet 40 mg PO DAILY Qty: 10 0RF benzonatate 100 mg capsule 200 mg PO TID PRN (Reason: cough) Qty: 20 0RF acetaminophen [Tylenol Extra Strength] 500 mg tablet 500 mg PO Q6H PRN (Reason: fever or pain) Qty: 14 0RF naproxen 500 mg tablet 500 mg PO BID PRN (Reason: pain) 10 Days Qty: 20 0RF ketorolac 10 mg tablet 10 mg PO BID PRN (Reason: pain) 5 Days Qty: 7 0RF Rx Instructions: Do not use this medication with ibuprofen or naproxen, only Tylenol if needed naproxen 500 mg tablet 500 mg PO BID PRN (Reason: pain) Qty: 20 0RF ibuprofen 600 mg tablet 600 mg PO QID PRN (Reason: fever or pain) Qty: 20 0RF cyclobenzaprine 10 mg tablet 10 mg PO TID PRN (Reason: pain, muscle spasm) Qty: 15 0RF acetaminophen [Tylenol Extra Strength] 500 mg tablet 1,000 mg PO Q6H PRN (Reason: fever or pain) Qty: 20 0RF oxycodone 5 mg tablet 5 mg PO Q6H PRN (Reason: pain) Qty: 10 0RF Rx Instructions: Patient may request partial refill; Partial Fill upon patient request. oxycodone 5 mg tablet 5 mg PO Q4H PRN (Reason: pain) Qty: 10 0RF Rx Instructions: Patient may request partial fill; Partial Fill upon patient request. ibuprofen 600 mg tablet 600 mg PO Q6H PRN (Reason: pain) Qty: 45 0RF Referrals: [facility] [place], [place] Family Medicine [Provider Group] [facility] [place] [place] [facility] [Provider Group] [facility] [place] [place] [facility] [Provider Group] Stand Alone Forms: Work/School Release Print Language: Senegalese
[2023-11-19 16:40] VITALS: BP 122/88; PULSE 83; RESP 20; TEMP 36.7; O2SAT 99
[2023-11-19] MEDS: Ibuprofen 600 MG TABLET PO (16:43)
[2023-11-19] MEDS: Acetaminophen 325 MG TABLET 975 MG PO (16:43)
[2023-11-19] MEDS: Diphth,Pertus(ACell),Tet Adult 0.5 ML SYRINGE IM (16:43)
[2023-11-19] MEDS: Lidocaine HCl 1 % 10 ML VIAL 30 ML INFILTRATI (17:26)
[2023-11-19 18:37] VITALS: BP 150/96; PULSE 96; RESP 18; TEMP 36.7; O2SAT 98
== END 2023-11-19 18:37 | disposition home or self-care (01) ==
PROVIDERS: Emergency Provider Emergency Medicine Emergency Medical Services
DX: S61.212A Laceration without foreign body of right middle finger without damage to nail, initial encounter (principal); S51.811A Laceration without foreign body of right forearm, initial encounter; M79.644 Pain in right finger(s); M79.601 Pain in right arm; W25.XXXA Contact with sharp glass, initial encounter; Y93.89 Activity, other specified; Y92.098 Other place in other non-institutional residence as the place of occurrence of the external cause; Y99.8 Other external cause status; Z23 Encounter for immunization
CPT/HCPCS: 12032; 12041; 73090; 73130; 90471; 90715; 99283; 99284

== ENCOUNTER 2023-11-25 11:35 | Emergency (ER) | payer MEDICAID, SELFPAY ==
[2023-11-25 11:57] VITALS: BP 139/79; PULSE 78; RESP 18; TEMP 36.8; O2SAT 99; BMI 32.0
--- NOTE | 2023-11-25 12:02 | ED_ITS ---
HPI - General Adult General Chief complaint: General Medical Stated complaint: stitches concern Time Seen by Provider: 11/25/23 12:10 Source: patient, RN notes reviewed and old records reviewed Mode of arrival: ambulatory Limitations: no limitations History of Present Illness ED Provider: Fox HPI narrative: 43-year-old female presents for evaluation of a wound evaluation. Patient was seen here 6 days ago and had stitches placed to her right hand after her hand went through a glass door She reports some numbness to the right hand that has developed. She denies any fevers, chills There is no drainage from the wound She was due to have the stitches in place for 2 weeks Related Data Previous Rx's ?Medication ?Instructions ?Recorded benzonatate 100 mg capsule 200 mg (2 x 100 mg) PO TID PRN 04/01/21 cough #20 caps ibuprofen 600 mg tablet 600 mg PO Q8H PRN fever or pain 04/01/21 #20 tabs prednisone 20 mg tablet 40 mg (2 x 20 mg) PO DAILY #10 tabs 04/01/21 acetaminophen 500 mg tablet 500 mg PO Q6H PRN fever or pain 06/03/22 (Tylenol Extra Strength) #14 tabs naproxen 500 mg tablet 500 mg PO BID PRN pain 10 days #20 06/03/22 tabs ketorolac 10 mg tablet 10 mg PO BID PRN pain 5 days #7 09/12/22 tabs oxycodone 5 mg tablet 5 mg PO Q4H PRN pain #10 tabs 01/27/23 ibuprofen 600 mg tablet 600 mg PO Q6H PRN pain #45 tabs 02/02/23 naproxen 500 mg tablet 500 mg PO BID PRN pain #20 tabs 07/04/23 acetaminophen 500 mg tablet 1,000 mg (2 x 500 mg) PO Q6H PRN 10/22/23 (Tylenol Extra Strength) fever or pain #20 tabs cyclobenzaprine 10 mg tablet 10 mg PO TID PRN pain, muscle 10/22/23 spasm #15 tabs ibuprofen 600 mg tablet 600 mg PO QID PRN fever or pain 10/22/23 #20 tabs oxycodone 5 mg tablet 5 mg PO Q6H PRN pain #10 tabs 10/22/23 cephalexin 500 mg capsule 500 mg PO BID 7 days #14 caps 11/19/23 cephalexin 500 mg capsule 500 mg PO Q6H 7 days #28 caps 12/02/23 doxycycline hyclate 100 mg tablet 100 mg PO BID 7 days #14 tabs 12/02/23 Allergies Allergy/AdvReac Type Severity Reaction Status Date / Time Iodine and Iodide Containing Allergy Unknown UNKNOWN Verified 12/02/23 08:37 Produc [IODINE AND IODIDE CONTAINING PRODUC] shrimp [SHRIMP] Allergy Unknown ANAPHYLAXIS Verified 12/02/23 08:37 Review of Systems Constitutional: Constitutional: Denies body ache(s), Denies chills and Denies fever(s) Musculoskeletal: Musculoskeletal: Denies joint swelling, Denies limited range of motion and Reports numbness Neurologic: Reports numbness PMFSH Past Medical History Medical History Pulmonary embolism Asthma Social History Social History Alcohol intake: current Alcohol intake frequency: 3 or more drinks per day Substance Use Type: Marijuana Current occupational status: employed Current occupation: rt hand Physical Exam ED Vital Signs: Vital Signs - 24 hr 11/25/23 11:57 Temperature 98.3 F Pulse Rate 78 Respiratory Rate 18 Blood Pressure 139/79 Pulse Oximetry 99 Oxygen Delivery Method Room Air BMI result Body Mass Index 32.0 Const General: healthy appearing, comfortable, no acute distress, alert and awake Nutritional Appearance: well nourished Orientation/consciousness: patient oriented x3 HENMT Head: Yes normocephalic and Yes atraumatic Eyes Eyelids: Yes eyelids normal Conjunctivae: conjunctivae normal Sclerae: sclerae normal Corneas: corneas normal Pupils: Equal, round and reactive pupils present EOM: EOMs intact bilaterally Neck Neck: Yes full ROM Resp Effort & Inspection: normal respiratory effort, able to speak in complete sentences and not labored Skin Other: Patient has 3 wounds to the right hand/forearm. All sutures remain in place with 4 sutures to the right 3rd finger, [address] to the right 2nd finger, and [address] to right forearm. All the wounds are approximated well, appear to be healing appropriately. There is no surrounding erythema or drainage. There is minimal ecchymosis. General skin exam: elasticity normal Neuro General: patient oriented x3 Cranial nerves: Yes Equal, round and reactive pupils present and Yes Bilaterally intact EOM present Cognition (Neuro): normal cognition Extrem Other: Moving all extremities well without any obvious deformities Medical Decision Making Medical Decision Making MDM Narrative: Patient here for wound evaluation, she has full range of motion to all fingers of the right hand, there is no evidence of infection, there was no evidence of tendon or ligamentous injury. Two sutures will remain in place and she will follow-up for suture removal at her appropriate time Differential Diagnosis Differential Diagnoses: The differential diagnosis associated with the presentation includes wound check nerve injury wound dehisence Cellulitis Discharge Plan Discharge Clinical Impression: Injury of hand, right Patient Disposition: Home, Self-Care Instructions: Care For Your Stitches (ED), Finger Laceration (ED) Additional Instructions: Your wounds appear to be healing well. There is no sign of infection Continue taking your antibiotics as prescribed to prevent infection Return in 5 days to have the sutures removed You may follow-up with Dr. Salena Mendosa, hand surgery Prescriptions: No Action ibuprofen 600 mg tablet 600 mg PO Q8H PRN (Reason: fever or pain) Qty: 20 0RF prednisone 20 mg tablet 40 mg PO DAILY Qty: 10 0RF benzonatate 100 mg capsule 200 mg PO TID PRN (Reason: cough) Qty: 20 0RF acetaminophen [Tylenol Extra Strength] 500 mg tablet 500 mg PO Q6H PRN (Reason: fever or pain) Qty: 14 0RF naproxen 500 mg tablet 500 mg PO BID PRN (Reason: pain) 10 Days Qty: 20 0RF ketorolac 10 mg tablet 10 mg PO BID PRN (Reason: pain) 5 Days Qty: 7 0RF Rx Instructions: Do not use this medication with ibuprofen or naproxen, only Tylenol if needed naproxen 500 mg tablet 500 mg PO BID PRN (Reason: pain) Qty: 20 0RF ibuprofen 600 mg tablet 600 mg PO QID PRN (Reason: fever or pain) Qty: 20 0RF cyclobenzaprine 10 mg tablet 10 mg PO TID PRN (Reason: pain, muscle spasm) Qty: 15 0RF acetaminophen [Tylenol Extra Strength] 500 mg tablet 1,000 mg PO Q6H PRN (Reason: fever or pain) Qty: 20 0RF oxycodone 5 mg tablet 5 mg PO Q6H PRN (Reason: pain) Qty: 10 0RF Rx Instructions: Patient may request partial refill; Partial Fill upon patient request. cephalexin 500 mg capsule 500 mg PO BID 7 Days Qty: 14 0RF cephalexin 500 mg capsule 500 mg PO Q6H 7 Days Qty: 28 0RF doxycycline hyclate 100 mg tablet 100 mg PO BID 7 Days Qty: 14 0RF oxycodone 5 mg tablet 5 mg PO Q4H PRN (Reason: pain) Qty: 10 0RF Rx Instructions: Patient may request partial fill; Partial Fill upon patient request. ibuprofen 600 mg tablet 600 mg PO Q6H PRN (Reason: pain) Qty: 45 0RF Referrals: Salena Mendosa MD [Physician] - (finger lacerations, numbness, no apparent tendon injury) Stand Alone Forms: Work/School Release Interventions: ED Discharge Assessment Last Done: 11/25/23 12:40 Discharge Date/Time: 11/25/23 12:40 Print Language: Belarusian
[2023-11-25 12:40] VITALS: BP 00/00; PULSE 0; RESP 0; TEMP -17.7; TEMP 0; O2SAT 0
== END 2023-11-25 12:40 | disposition home or self-care (01) ==
PROVIDERS: Emergency Provider Emergency Medicine
DX: R20.0 Anesthesia of skin (principal); Z98.890 Other specified postprocedural states
CPT/HCPCS: 99282

== ENCOUNTER 2023-12-02 08:32 | Emergency (ER) | payer MEDICAID, SELFPAY ==
[2023-12-02 08:35] VITALS: BP 112/79; PULSE 74; RESP 18; TEMP 36.6; O2SAT 98; BMI 32.4
--- NOTE | 2023-12-02 09:14 | ED_ITS ---
HPI - General Adult General Chief complaint: General Medical Stated complaint: stitch removal Time Seen by Provider: 12/02/23 09:10 Source: patient Mode of arrival: ambulatory Limitations: no limitations History of Present Illness ED Provider: Lissa Aguilar PA-C HPI narrative: Patient is a 43 year old assigned female at with a history of finger and forearm lacerations on 11/19/2023 presenting to the emergency department today for suture removal. Patient states that she cut her right 2nd finger, 3rd finger, and volar forearm on 11/19/2023 with glass, was seen here and sutured, a nd given PO keflex. Patient states that she is here to have her sutures removed. Patient states that she took all of her keflex as prescribed but she continues to have intermittent tingling in her right 2nd and 3rd finger with increased pain in her 2nd digit. Patient denies any dizziness, lightheadedness, abdominal pain, nausea, vomiting, fever, chills, blurry vision, double vision, loss of vision, chest pain, difficulty breathing, shortness of breath, back pain, night sweats, pain with urination, increased urinary frequency, increased urinary urgency, blood in her urine or stool, syncope or a near syncopal episode, recent trauma or falls, bowel incontinence, bladder incontinence, or any other complaints at this time. Relieving factors: none Exacerbating factors: none Associated symptoms: denies other symptoms Treatments prior to arrival: none Related Data Previous Rx's ?Medication ?Instructions ?Recorded benzonatate 100 mg capsule 200 mg (2 x 100 mg) PO TID PRN 04/01/21 cough #20 caps ibuprofen 600 mg tablet 600 mg PO Q8H PRN fever or pain 04/01/21 #20 tabs prednisone 20 mg tablet 40 mg (2 x 20 mg) PO DAILY #10 tabs 04/01/21 acetaminophen 500 mg tablet 500 mg PO Q6H PRN fever or pain 06/03/22 (Tylenol Extra Strength) #14 tabs naproxen 500 mg tablet 500 mg PO BID PRN pain 10 days #20 06/03/22 tabs ketorolac 10 mg tablet 10 mg PO BID PRN pain 5 days #7 09/12/22 tabs oxycodone 5 mg tablet 5 mg PO Q4H PRN pain #10 tabs 01/27/23 ibuprofen 600 mg tablet 600 mg PO Q6H PRN pain #45 tabs 02/02/23 naproxen 500 mg tablet 500 mg PO BID PRN pain #20 tabs 07/04/23 acetaminophen 500 mg tablet 1,000 mg (2 x 500 mg) PO Q6H PRN 10/22/23 (Tylenol Extra Strength) fever or pain #20 tabs cyclobenzaprine 10 mg tablet 10 mg PO TID PRN pain, muscle 10/22/23 spasm #15 tabs ibuprofen 600 mg tablet 600 mg PO QID PRN fever or pain 10/22/23 #20 tabs oxycodone 5 mg tablet 5 mg PO Q6H PRN pain #10 tabs 10/22/23 cephalexin 500 mg capsule 500 mg PO BID 7 days #14 caps 11/19/23 cephalexin 500 mg capsule 500 mg PO Q6H 7 days #28 caps 12/02/23 doxycycline hyclate 100 mg tablet 100 mg PO BID 7 days #14 tabs 12/02/23 Allergies Allergy/AdvReac Type Severity Reaction Status Date / Time Iodine and Iodide Containing Allergy Unknown UNKNOWN Verified 12/02/23 08:37 Produc [IODINE AND IODIDE CONTAINING PRODUC] shrimp [SHRIMP] Allergy Unknown ANAPHYLAXIS Verified 12/02/23 08:37 Review of Systems Constitutional: Constitutional: Reports no additional constitutional complaints, Denies chills, Denies fever(s) and Denies night sweats Eyes: Eyes: Reports no additional eye complaints, Denies blurry vision, Denies change in vision, Denies diplopia, Denies eye discharge, Denies loss of vision and Denies eye pain ENT: Denies dizziness Cardiovascular: Cardiovascular: Reports no additional cardiovascular complaints, Denies chest pain, Denies lightheadedness, Denies Loss of Consciousness and Denies dyspnea Respiratory: Respiratory: Reports no additional respiratory complaints and Denies dyspnea Gastrointestinal: Gastrointestinal: Reports no additional gastrointestinal complaints, Denies abdominal pain, Denies melena, Denies hematochezia, Denies change in bowel habits and Denies change in stool character Genitourinary: Genitourinary: Denies hematuria, Denies urinary frequency, Denies dysuria, Denies urinary incontinence, Denies urinary hesitancy and Denies urinary urgency Musculoskeletal: Musculoskeletal: Reports no additional musculoskeletal complaints Comments: 3 sutures present in the dorsal right in dex finger, 1 suture present in the dorsal right 3rd digit, 2 sutures present in the volar right forearm Neurologic: Denies dizziness and Denies loss of vision Comments: intermittent tingling in the right 2nd and 3rd digits Psychiatric: Psychiatric: Reports no additional psychiatric complaints Endocrine: Endocrine: Reports no additional endocrine complaints Hematologic/Lymphatic: Hematologic/Lymphatic: Reports no additional hematologic/lymphatic complaints Allergic/Immunologic: Allergic/Immunologic: Reports no additional allergic/immunologic complaints [facility] Past Medical History Attestation statement: The following information was validated with the patient. Source: old records reviewed and nursing notes reviewed Medical History Pulmonary embolism Asthma Social History Social History Alcohol intake: current Alcohol intake frequency: 3 or more drinks per day Substance Use Type: Marijuana Current occupational status: employed Current occupation: rt hand Physical Exam ED Vital Signs: Vital Signs - 24 hr 12/02/23 08:35 Temperature 98 F Pulse Rate 74 Respiratory Rate 18 Blood Pressure 112/79 Pulse Oximetry 98 Oxygen Delivery Method Room Air BMI result Body Mass Index 32.4 Const General: cooperative, no acute distress, alert and awake Nutritional Appearance: well nourished Orientation/consciousness: patient oriented x3 Limitations: no limitations HENMT Head: Yes normal to inspection and Yes atraumatic Ears: hearing grossly normal bilaterally and external ears normal General nose exam: Normal external nose present, no nasal discharge noted and no epistaxis Face and sinus: Yes normal facial exam, No abrasion and No laceration Mouth: Normal oral and palatal mucosa present, no drooling and no muffled voice Eyes General: appearance normal, both eyes and all related structures Periorbital: periorbital findings normal Eyelids: Yes eyelids normal Conjunctivae: conjunctivae normal Pupils: Equal, round and reactive pupils present EOM: EOMs intact bilaterally Neck Neck: Yes normal visual inspection, Yes full ROM and Yes no lymphadenopathy Chest Chest palpation & inspection: normal inspection of the chest Resp Effort & Inspection: normal respiratory effort and able to speak in complete sentences GI Inspection: Yes normal to inspection Neuro General: patient oriented x3 and moves all extremities Cranial nerves: Yes Equal, round and reactive pupils present Cognition (Neuro): normal cognition Extrem Other: 3 sutures present in the right dorsal 2nd digit with surrounding erythema 1 suture present in the right dorsal 3rd digit 2 sutures present in the right volar forearm with surrounding erythema General: Yes full ROM and Yes capillary refill normal Psych Appearance: grossly normal Mental Status: mental status grossly normal Affect: normal affect Attitude: cooperative Thought process: Normal thought process present Thought content: Normal thought content present Insight: Good insight present (Psych) Procedures Procedure Narrative Procedure Narrative: 3 sutures removed from the right dorsal 2nd digit with mild pain but no drainage or other complications 1 suture removed from the right 3rd digit without incident or pain 2 sutures removed from the volar right forearm with minimal pain but no drainage or other complications Medical Decision Making Medical Decision Making MDM Narrative: Patient is a 43 year old assigned female at with a history of multiple lacerations with suture placement on 4presenting to the emergency department today for suture removal and intermittent tingling / pain of the right 2nd digit. Patient's physical exam was as noted in the physical exam portion of this note. Concern for cellulitis of the right dorsal index finger and right volar forearm but no fluctuance. I explained my physical exam findings to the patient. I answered all questions asked by the patient. Patient's sutures were removed per procedure note. I stressed the importance of the patient taking her medication as directed (either prescribed or as the over the counter packaging recommends). I stressed the importance of the patient fol lowing up with her primary care provider and a hand specialist given her continued intermittent tingling / pain in her fingers. I stressed the importance of the patient returning to the emergency department immediately if her symptoms were to worsen or if she were to develop any dizziness, shortness of breath, difficulty breathing, chest pain, blurry vision, loss of vision, nausea, vomiting, abdominal pain, fever, chills, back pain, or any other complaints. Patient verbalized agreement and understanding with this treatment plan and discharge. Differential Diagnosis Differential Diagnoses: The differential diagnosis associated with the presentation includes Cellulitis Nerve pain Neuropathy Admission/Observation Consideration of admission/observation: Escalation of care including admission/observation considered Patient would have been admitted to the hospital had her clinical presentation warranted hospital admission. Prescription Management I considered prescription management with: Antibiotic (patient prescribed an antibiotic for possible right 2nd digit and forearm cellulitis) Discharge Plan Discharge Clinical Impression: Cellulitis, Finger pain Patient Disposition: Home, Self-Care Instructions: Cellulitis (DC) Additional Instructions: Follow up with your primary care provider and the hand specialist. Take your antibiotics as prescribed. Return to the emergency department immediately if your symptoms worsen or if you develop any dizziness, shortness of breath, difficulty breathing, chest pain, blurry vision, loss of vision, nausea, vomiting, abdominal pain, fever, chills, back pain, or any other complaints. Prescriptions: New cephalexin 500 mg capsule 500 mg PO Q6H 7 Days Qty: 28 0RF doxycycline hyclate 100 mg tablet 100 mg PO BID 7 Days Qty: 14 0RF No Action ibuprofen 600 mg tablet 600 mg PO Q8H PRN (Reason: fever or pain) Qty: 20 0RF prednisone 20 mg tablet 40 mg PO DAILY Qty: 10 0RF benzonatate 100 mg capsule 200 mg PO TID PRN (Reason: cough) Qty: 20 0RF acetaminophen [Tylenol Extra Strength] 500 mg tablet 500 mg PO Q6H PRN (Reason: fever or pain) Qty: 14 0RF naproxen 500 mg tablet 500 mg PO BID PRN (Reason: pain) 10 Days Qty: 20 0RF ketorolac 10 mg tablet 10 mg PO BID PRN (Reason: pain) 5 Days Qty: 7 0RF Rx Instructions: Do not use this medication with ibuprofen or naproxen, only Tylenol if needed naproxen 500 mg tablet 500 mg PO BID PRN (Reason: pain) Qty: 20 0RF ibuprofen 600 mg tablet 600 mg PO QID PRN (Reason: fever or pain) Qty: 20 0RF cyclobenzaprine 10 mg tablet 10 mg PO TID PRN (Reason: pain, muscle spasm) Qty: 15 0RF acetaminophen [Tylenol Extra Strength] 500 mg tablet 1,000 mg PO Q6H PRN (Reason: fever or pain) Qty: 20 0RF oxycodone 5 mg tablet 5 mg PO Q6H PRN (Reason: pain) Qty: 10 0RF Rx Instructions: Patient may request partial refill; Partial Fill upon patient request. cephalexin 500 mg capsule 500 mg PO BID 7 Days Qty: 14 0RF oxycodone 5 mg tablet 5 mg PO Q4H PRN (Reason: pain) Qty: 10 0RF Rx Instructions: Patient may request partial fill; Partial Fill upon patient request. ibuprofen 600 mg tablet 600 mg PO Q6H PRN (Reason: pain) Qty: 45 0RF Referrals: [facility] [place] Family Medicine [Provider Group] (Call to establish and follow up with a primary care provider. If you already have a primary care provider, please foll ow up with them.) [facility] Primary Care, Efren [Provider Group] (Call to establish and follow up with a primary care provider. If you already have a primary care provider, please follow up with them.) [facility] Primary Care,Len [Provider Group] (Call to establish and follow up with a primary care provider. If you already have a primary care provider, please follow up with them.) [facility] [place] [facility] [Provider Group] (Call to establish and follow up with a hand specialist. ) Stand Alone Forms: Work/School Release Discharge Date/Time: 12/02/23 10:38 Print Language: Algerian
== END 2023-12-02 10:38 | disposition home or self-care (01) ==
PROVIDERS: Emergency Provider Emergency Medicine Emergency Medical Services
DX: L03.011 Cellulitis of right finger (principal); L03.113 Cellulitis of right upper limb; M79.644 Pain in right finger(s); Z48.02 Encounter for removal of sutures
CPT/HCPCS: 99281; 99283

== ENCOUNTER 2023-12-09 14:03 | Outpatient (AMB) | payer MEDICAID, SELFPAY ==
[2023-12-09 14:06] VITALS: BMI 32.4
--- NOTE | 2023-12-09 14:06 | MHC.OFFVIS ---
Vital Signs 12/09/23 14:06 Height 5 ft 2 in Weight 177 lb BMI 32.4 Intake Visit Reasons: FC, R hand injury Intake Note: Roseanna is a 43 year old right hand dominant female who presents today as a new patient with complaints of right hand pain. On 11/19/23 the patient was knocking on the glass door for her to let her in and her hand went through the glass. She was seen at [facility] where 4 sutures were placed in the 3rd digit, one suture in the 2nd digit and 2 sutures in the volar aspect of the forearm. She was later seen in ED for 11/19/23, for suture removal and was placed on Abx for concerns of cellulitis. She continues to take the Antibiotics but they are almost done. Patient reports that she is still having pain along the laceration sites, she describes this pain as a burning pain that radiates up the forearm. Her primary complaint today is pain of the left hand, she is unable to bear weight on the left hand, she is unable to make a fist or use the hand. While in tears she explains that the pain is so severe it is affecting her daily activities and is unable to function in her role as a [employer]. Allergies Iodine and Iodide Containing Produc [IODINE AND IODIDE CONTAINING PRODUC] Allergy (Unknown, Verified 12/02/23 08:37) UNKNOWN shrimp [SHRIMP] Allergy (Unknown, Verified 12/02/23 08:37) ANAPHYLAXIS HPI HPI FC, R hand injury: Details: Patient is a 43-year-old female who presents for follow-up evaluation of lacerations to the right hand and forearm, date of injury 11/19/2023. The patient reports that on that date, she tripped and her hand went through a glass door, resulting in lacerations to the dorsal index finger, dorsal middle finger, and volar forearm on the right. Patient was previously evaluated in the emergency department, where sutures were placed. The patient later presented to emergency department for suture removal, where there was purulent discharge from the laceration the patient was placed on antibiotics. Today, the patient reports that the lacerations have closed, but they are still significantly painful and tender to palpation. Patient reports that this makes range of motion difficult, and then she has been attempting to use the right hand is little as possible due to this. Patient reports that she also has limited range of motion in the right due to pain and stiffness. The patient reports that the small laceration on her volar right forearm is the 1 that causes her the most discomfort. The patient also reports some numbness in the tips of the fingers affected by the laceration. She also reports 1 episode of significant pain while attempting to push up with her left hand yesterday. No other acute complaints or concerns at this time. [facility] Medical History Pulmonary embolism Asthma Social History Alcohol intake: current Alcohol intake frequency: 3 or more drinks per day Substance Use Type: Marijuana Current occupational status: employed Current occupation: rt hand Review of Systems Const All systems reviewed & are unremarkable except as noted in HPI and below Physical Exam Vital Signs: BMI result Body Mass Index 32.4 Extrem Other: Patient is alert, oriented, and in no acute distress. Neuro: Patient reports diminished sensation to the ulnar aspect of the pad of the right index finger, as well as to the tip of the right middle finger Patient reports normal sensation of the tips of all other digits of the right this time Vascular: Cap refill brisk Pain: Patient reports significant tenderness to palpation about the laceration sites on the dorsal aspect of the right index middle fingers, as well as to the small laceration site of the volar right forearm Patient also reports discomfort with flexion of the right index and middle fingers No tenderness to palpation of the ring finger, small finger, thumb, radial styloid, ulnar styloid, or wrist ROM: With encouragement, patient is able to make a closed fist and extend all digits of the right hand full Skin: Well-healed lacerations noted on the dorsal aspect of the right index and middle fingers, as well as a small well-healed laceration on the volar right forearm No drainage General: No ecchymosis, erythema, or evidence of infection. Psych: Appears grossly normal Affect normal Attitude cooperative Assessment & Plan Assessment & Plan (1) Laceration of forearm, right: Code(s): S51.811A - Laceration without foreign body of right forearm, initial encounter Category: Medical (2) Laceration of right middle finger: Code(s): S61.212A - Laceration without foreign body of right middle finger without damage to nail, initial encounter Category: Medical (3) Laceration of right index finger: Code(s): S61.210A - Laceration without foreign body of right index finger without damage to nail, initial encounter Category: Medical (4) Numbness and tingling of right hand: Code(s): R20.0 - Anesthesia of skin; R20.2 - Paresthesia of skin Category: Medical Plan 1. Lacerations of fingers and forearm Date of injury 11/19/2023 Patient is educated about this injury and typical recovery course Patient is evaluated with Dr. Mendosa, who was available to see the patient with me in clinic today, and a collaborative treatment plan was formed: The patient is educated that there are no signs of active ongoing infection these laceration sites Patient is educated that she is likely having hypersensitivity reaction about these laceration sites, and this is what is causing her significant tenderness to palpation at and about the lacerations Patient is also educated that her hand is likely stiff from lack of use, and the patient is encouraged to give [id number] exercises to prevent further stiffness The patient is also referred to occupational therapy for desensitization training of the laceration sites, as well as [id number] exercises Patient is amenable to this plan Patient follow-up as needed with any acute concerns 2. Numbness and tingling of right index and middle fingers Symptoms constant since injury Patient is educated that, if her symptoms continue after she has recovered from her injury, she should call our office for re-evaluation of this numbness and tingling, as if this is the case that may be unrelated to her laceration. Patient is amenable to this plan Patient will follow-up as needed with any acute concerns Orders: Orders OT Evaluation and Treatment 12/09/23 S51.811A - Laceration without foreign body of right forearm, initial encounter, S61.210A - Laceration without foreign body of right index finger without damage to nail, initial encounter, S61.212A - Laceration without foreign body of right middle finger without damage to nail, initial encounter Coding Level of Care Code Est Pt Level 3 (79563) Diagnoses Laceration of forearm, right S51.811A Laceration of right middle finger S61.212A Laceration of right index finger S61.210A Numbness and tingling of right hand R20.0; R20.2
== END 2023-12-09 14:44 | disposition home or self-care (01) ==
DX: S51.811A Laceration without foreign body of right forearm, initial encounter (principal); S61.212A Laceration without foreign body of right middle finger without damage to nail, initial encounter; S61.210A Laceration without foreign body of right index finger without damage to nail, initial encounter; R20.0 Anesthesia of skin; R20.2 Paresthesia of skin
CPT/HCPCS: 99213

== ENCOUNTER → 2023-12-09 14:03 | Outpatient (BNVA) | payer MEDICAID, SELFPAY | DX: M79.641 Pain in right hand (principal); S51.811D Laceration without foreign body of right forearm, subsequent encounter; S61.212D Laceration without foreign body of right middle finger without damage to nail, subsequent encounter; S61.210D Laceration without foreign body of right index finger without damage to nail, subsequent encounter; R20.2 Paresthesia of skin; R20.0 Anesthesia of skin; W25.XXXD Contact with sharp glass, subsequent encounter; Z79.2 Long term (current) use of antibiotics | CPT/HCPCS: 99212 ==

== ENCOUNTER 2023-12-17 00:14 | Emergency (ER) | payer MEDICAID, SELFPAY ==
[2023-12-17 00:15] VITALS: BP 128/72; PULSE 96; RESP 18; TEMP 36.6; O2SAT 100; BMI 32.0
--- NOTE | 2023-12-17 01:39 | ED.EXTPRO ---
HPI - Extremity Problem General Chief complaint: Extremity Injury, Upper Stated complaint: Lt Hand pain/swelling Time Seen by Provider: 12/17/23 00:53 Source: patient, RN notes reviewed and old records reviewed Mode of arrival: ambulatory Limitations: no limitations History of Present Illness ED Provider: Fox REIS Narrative: 43-year-old female presents for evaluation of left wrist and hand pain. She reports she has had on and off pain in the left hand and wrist for the last year. She occasionally has numbness to the left hand and is having difficulty moving the left thumb. She denies any specific injury or trauma. She reports that she is frequently using her hands She saw a hand surgeon a few weeks ago for a laceration to her other hand and was told she may have carpal tunnel syndrome Related Data Previous Rx's ?Medication ?Instructions ?Recorded prednisone 20 mg tablet 40 mg (2 x 20 mg) PO DAILY #10 tabs 04/01/21 naproxen 500 mg tablet 500 mg PO BID PRN pain 10 days #20 06/03/22 tabs cyclobenzaprine 10 mg tablet 10 mg PO TID PRN pain, muscle 10/22/23 spasm #15 tabs ibuprofen 600 mg tablet 600 mg PO QID PRN fever or pain 10/22/23 #20 tabs cephalexin 500 mg capsule 500 mg PO Q6H 7 days #28 caps 12/02/23 oxycodone 5 mg tablet 5 mg PO Q8H PRN pain #12 tabs 12/17/23 Allergies Allergy/AdvReac Type Severity Reaction Status Date / Time Iodine and Iodide Containing Allergy Unknown UNKNOWN Verified 12/17/23 00:19 Produc [IODINE AND IODIDE CONTAINING PRODUC] shrimp [SHRIMP] Allergy Unknown ANAPHYLAXIS Verified 12/17/23 00:19 Review of Systems Constitutional: Constitutional: Denies body ache(s), Denies chills and Denies headache(s) ENT: Denies headache(s) Musculoskeletal: Musculoskeletal: Reports arthralgias, Reports joint swelling, Reports limited range of motion, Reports numbness and Reports tingling Neurologic: Denies headache(s), Reports numbness, Reports tingling and Reports paresthesias PMFSH Past Medical History Medical History Pulmonary embolism Asthma Social History Social History (Reviewed 08/28/24 @ 12:43 by ANGUS Dobbs Alcohol intake: current Alcohol intake frequency: 3 or more drinks per day Substance Use Type: Marijuana Advance Directives: No Advance Directives Information Provided: Yes Do you have a plan to hurt others: No Plan Current occupational status: employed Current occupation: rt hand Physical Exam Vital Signs: Vital Signs: Last Vital Signs Temp 97.9 F 12/17/23 02:07 Pulse 85 12/17/23 02:08 Resp 16 12/17/23 02:08 BP 117/59 L 12/17/23 02:08 Pulse Ox 96 12/17/23 02:08 O2 Del Method Room Air 12/17/23 02:08 BMI result Body Mass Index 32.0 Const: General: healthy appearing, comfortable, no acute distress, alert and awake Nutritional Appearance: well nourished Orientation/consciousness: patient oriented x3 HEENT: Head: Yes normocephalic and Yes atraumatic Eyes: Eyelids: Yes eyelids normal Conjunctivae: conjunctivae normal Sclerae: sclerae normal Corneas: corneas normal Pupils: Equal, round and reactive pupils present EOM: EOMs intact bilaterally Neck: Neck: Yes full ROM Resp: Effort & Inspection: normal respiratory effort, able to speak in complete sentences and not labored Skin: General skin exam: elasticity normal Neuro: General: patient oriented x3 Cranial nerves: Yes Equal, round and reactive pupils present and Yes Bilaterally intact EOM present Cognition (Neuro): normal cognition Extrem: Other: Patient has no obvious deformity to the upper extremities bilaterally. She has a positive Tinel sign on left. Radial pulses are 2+ and equal. Capillary refill under 3 seconds bilaterally. There is tenderness with palpation of the ventral left wrist, no tenderness of the left elbow Medications Administered Discontinued Medications Generic Name Dose Route Start Last Admin Trade Name Freq PRN Reason Stop Dose Admin Ketorolac Tromethamine 30 mg 12/17/23 01:39 12/17/23 02:00 Ketorolac Tromethamine 30 Mg/Ml Vial IM 12/17/23 01:40 30 mg ONCE ONE Administration Medical Decision Making Medical Decision Making MDM Narrative: 43-year-old female presents for evaluation of acute on chronic left hand and wrist pain. Her physical exam is consistent with carpal tunnel syndrome and her clinical history is consistent with carpal tunnel syndrome. There was no trauma to warrant emergent imaging at this time. She has good pulses, good cap refill, no indication of vasculature compromise. Plan for pain control and outpatient follow-up Differential Diagnosis Differential Diagnoses: The differential diagnosis associated with the presentation includes Carpal tunnel syndrome Wrist sprain Tenosynovitis DVT less likely Discharge Plan Discharge Clinical Impression: Acute carpal tunnel syndrome Patient Disposition: Home, Self-Care Instructions: Carpal Tunnel Surgery (DC) Additional Instructions: Use ibuprofen/Tylenol for pain. You may use oxycodone for more severe breakthrough pain. I do recommend that you follow-up with a hand specialist for your likely carpal tunnel syndrome Return for new or worsening symptoms Prescriptions: New oxycodone 5 mg tablet 5 mg PO Q8H PRN (Reason: pain) Qty: 12 0RF Rx Instructions: Partial Fill upon patient request. No Action prednisone 20 mg tablet 40 mg PO DAILY Qty: 10 0RF naproxen 500 mg tablet 500 mg PO BID PRN (Reason: pain) 10 Days Qty: 20 0RF ibuprofen 600 mg tablet 600 mg PO QID PRN (Reason: fever or pain) Qty: 20 0RF cyclobenzaprine 10 mg tablet 10 mg PO TID PRN (Reason: pain, muscle spasm) Qty: 15 0RF cephalexin 500 mg capsule 500 mg PO Q6H 7 Days Qty: 28 0RF Referrals: Salena Mendosa MD [Physician] - (Carpal tunnel) Stand Alone Forms: Work/School Release Interventions: ED Discharge Assessment Last Done: 12/17/23 02:07 Discharge Date/Time: 12/17/23 02:11 Print Language: Faroese
[2023-12-17] MEDS: Ketorolac Tromethamine 30 MG/ML VIAL IM (02:00)
[2023-12-17 02:07] VITALS: BP 117/59; PULSE 85; RESP 16; TEMP 36.6; O2SAT 96
[2023-12-17 02:08] VITALS: BP 117/59; PULSE 85; RESP 16; O2SAT 96
== END 2023-12-17 02:11 | disposition home or self-care (01) ==
PROVIDERS: Emergency Provider Emergency Medicine
DX: G56.02 Carpal tunnel syndrome, left upper limb (principal); M25.532 Pain in left wrist
CPT/HCPCS: 96372; 99284; J1885

== ENCOUNTER 2023-12-24 10:11 | Outpatient (AMB) | payer MEDICAID, SELFPAY ==
--- NOTE | 2023-12-24 10:19 | MHC.OFFVIS ---
Intake Visit Reasons: New prob -Lt hand numbness/tingling Intake Note: Roseanna is a 43 year old right hand dominant female who presents today for a new problem visit with complaints of left hand numbness and tingling. Pt states this started about 6 months ago. Pt states she has numbness and tingling in both hands but the left is worse. 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 She is also a [employer] and it it hard to help her patients. Pt states she gets shooting pain up her arm. Pt states it also wakes her up at night. Allergies Iodine and Iodide Containing Produc [IODINE AND IODIDE CONTAINING PRODUC] Allergy (Unknown, Verified 12/24/23 10:19) UNKNOWN shrimp [SHRIMP] Allergy (Unknown, Verified 12/24/23 10:19) ANAPHYLAXIS HPI HPI New prob -Lt hand numbness/tingling: Details: Patient is a 43-year-old female who presents for evaluation of left hand numbness and tingling. Patient states that her left hand has been going numb and tingling intermittently for the last few years, but states that this numbness has become constant over the last 5-6 months. Patient states that this numbness and tingling moves into the left forearm, and occasionally up into the shoulder and even the neck. The patient states that, over the last 2-3 weeks, she has also developed significant pain in her left thumb. Patient states that she was previously provided with a Velcro wrist splint by the emergency department, and states that she has been wearing this almost constantly. Patient also states that she has not had OT yet for her right hand. No other acute complaints or concerns at this time. [facility] Medical History Pulmonary embolism Asthma Social History Alcohol intake: current Alcohol intake frequency: 3 or more drinks per day Substance Use Type: Marijuana Current occupational status: employed Current occupation: rt hand Physical Exam Extrem Other: Neuro: Decreased sensation in the thumb, index finger, middle finger of the left hand. Normal sensation to all other digits in the left hand today. Normal sensation in the tips of all digits of the right hand today. No thenar or intrinsic wasting. Week APB muscle belly firing Good finger cross. Vascular: Capillary refill brisk. ROM: Patient can make a fist and extend all their digits, however the patient reports significant discomfort in her left thumb when she does this Skin: No lacerations or abrasions noted. General: No ecchymosis. No erythema or evidence of infection. Assessment & Plan Assessment & Plan (1) Laceration of forearm, right: Code(s): S51.811A - Laceration without foreign body of right forearm, initial encounter Category: Medical (2) Laceration of right middle finger: Code(s): S61.212A - Laceration without foreign body of right middle finger without damage to nail, initial encounter Category: Medical (3) Laceration of right index finger: Code(s): S61.210A - Laceration without foreign body of right index finger without damage to nail, initial encounter Category: Medical (4) Numbness and tingling of right hand: Code(s): R20.0 - Anesthesia of skin; R20.2 - Paresthesia of skin Category: Medical Plan 1. Numbness and tingling of right hand Symptoms constant, daily, worse at night Patient was referred for EMG and nerve conduction study to assess the health of the nerves of the left upper extremity Patient is amenable to this plan Patient will follow-up after EMG and nerve conduction study for results review and discussion of further treatment options, sooner with any acute concerns 2. Lacerations of right hand and forearm with associated hypersensitivity reaction Date of injury 11/19/2023 Patient states that she has not been called by occupational therapy to set up an appointment for previously prescribed OT OT is reordered today Patient is informed that she should receive a call in the coming days from occupational therapy to schedule initial appointment Patient is amenable to this plan Patient will follow-up after EMG and nerve conduction study, sooner with any acute concerns Orders: Orders OT Evaluation and Treatment Today S51.811A - Laceration without foreign body of right forearm, initial encounter, S61.210A - Laceration without foreign body of right index finger without damage to nail, initial encounter, S61.212A - Laceration without foreign body of right middle finger without damage to nail, initial encounter NE nerve conduction velocity Today R20.0 - Anesthesia of skin, R20.2 - Paresthesia of skin NE electromyogram (EMG) Today R20.0 - Anesthesia of skin, R20.2 - Paresthesia of skin Coding Level of Care Code Est Pt Level 3 (93733) Diagnoses Laceration of forearm, right S51.811A Laceration of right middle finger S61.212A Laceration of right index finger S61.210A Numbness and tingling of right hand R20.0; R20.2
== END 2023-12-24 11:01 | disposition home or self-care (01) ==
DX: S51.811A Laceration without foreign body of right forearm, initial encounter (principal); S61.212A Laceration without foreign body of right middle finger without damage to nail, initial encounter; S61.210A Laceration without foreign body of right index finger without damage to nail, initial encounter; R20.0 Anesthesia of skin; R20.2 Paresthesia of skin
CPT/HCPCS: 99213

== ENCOUNTER → 2023-12-24 10:11 | Outpatient (BNVA) | payer MEDICAID, SELFPAY | DX: R20.0 Anesthesia of skin (principal); R20.2 Paresthesia of skin; S51.811D Laceration without foreign body of right forearm, subsequent encounter; S61.212D Laceration without foreign body of right middle finger without damage to nail, subsequent encounter; S61.210D Laceration without foreign body of right index finger without damage to nail, subsequent encounter | CPT/HCPCS: 99212 ==

== ENCOUNTER 2024-01-15 12:37 | Outpatient (REF) | payer MEDICAID, SELFPAY ==
--- NOTE | 2024-01-15 12:41 | EMG_ITS ---
Chief complaint: Bilateral hand pain/numbness more than a year Reason for referral: Evaluate for Carpal Tunnel Syndrome Referred by: Eladio HERNÁNDEZ Procedure done: Bilateral upper extremities NCS/EMG Precautions and/or limitations: None The limb temperature was monitored continuously and remained between 32-36 degrees C during the performance of the NCS. Ulnar motor NCS was performed with moderate elbow flexion between 70-90 degrees, with across-elbow distance of 10 cm. Nerve Conduction Studies Anti Sensory Summary Table ?Stim Site NR Onset (ms) Norm Onset (ms) Peak (ms) Norm Peak (ms) O-P Amp (?V) Norm O-P Amp Site1 Site2 Delta-0 (ms) Dist (cm) Hayden (m/s) Norm Hayden (m/s) Left Median Anti Sensory (2nd Digit) Wrist ? 2.6 3.2 <3.6 17.5 >10 Wrist 2nd Digit 2.6 14.0 54 Right Median Anti Sensory (2nd Digit) Wrist ? 2.4 3.1 <3.6 35.9 >10 Wrist 2nd Digit 2.4 14.0 58 Left Ulnar Anti Sensory (5th Digit) Wrist ? 2.3 3.1 <3.7 29.9 >15.0 Wrist 5th Digit 2.3 14.0 61 Right Ulnar Anti Sensory (5th Digit) Wrist ? 2.1 2.8 <3.7 28.4 >15.0 Wrist 5th Digit 2.1 14.0 67 Motor Summary Table ?Stim Site NR Onset (ms) Norm Onset (ms) O-P Amp (mV) Norm O-P Amp iAmp (mV) Amp (1st) (%) Site1 Site2 Delta-0 (ms) Dist (cm) Hayden (m/s) Norm Hayden (m/s) Left Median Motor (Abd Poll Brev) Wrist ? 3.2 <3.9 9.9 >4.5 11.8 100.0 Elbow Wrist 3.6 19.0 53 >45 Elbow ? 6.8 9.3 11.3 93.9 Right Median Motor (Abd Poll Brev) Wrist ? 3.4 <3.9 8.3 >4.5 9.7 100.0 Elbow Wrist 3.7 29.0 78 >45 Elbow ? 7.1 8.1 9.2 97.6 Left Ulnar Motor (Abd Dig Minimi) Wrist ? 2.7 <3.0 7.8 >5 9.7 100.0 B Elbow Wrist 2.6 16.5 63 >45 B Elbow ? 5.3 7.4 8.9 94.9 A Elbow B Elbow 1.3 10.0 77 >45 A Elbow ? 6.6 7.1 8.3 91.0 Right Ulnar Motor (Abd Dig Minimi) Wrist ? 2.4 <3.0 10.1 >5 12.8 100.0 B Elbow Wrist 3.0 18.0 60 >45 B Elbow ? 5.4 10.1 12.8 100.0 A Elbow B Elbow 1.4 10.0 71 >45 A Elbow ? 6.8 9.4 11.9 93.1 Comparison Summary Table ?Stim Site NR Peak (ms) Norm Peak (ms) P-T Amp (?V) Site1 Site2 Delta-P (ms) Norm Delta (ms) Left Median/Radial Dig I Comparison (Digit 1 - 10cm) Median ? 2.4 <2.9 58.3 Median Radial 0.2 Radial ? 2.2 <2.8 16.3 EMG ?Side Muscle Nerve Root Ins Act Fibs Psw Amp Dur Poly Recrt Int Pat Comment Right 1stDorInt Ulnar C8-T1 Nml Nml Nml Nml Nml 0 Nml Complete Right FlexCarRad Median C6-7 Nml Nml Nml Nml Nml 0 Nml Complete Right Biceps Musculocut C5-6 Nml Nml Nml Nml Nml 0 Nml Complete Right Triceps Radial C6-7-8 Nml Nml Nml Nml Nml 0 Nml Complete Right Deltoid Axillary C5-6 Nml Nml Nml Nml Nml 0 Nml Complete Left 1stDorInt Ulnar C8-T1 Nml Nml Nml Nml Nml 0 Nml Complete Left FlexCarRad Median C6-7 Nml Nml Nml Nml Nml 0 Nml Complete Left Biceps Musculocut C5-6 Nml Nml Nml Nml Nml 0 Nml Complete Left Triceps Radial C6-7-8 Nml Nml Nml Nml Nml 0 Nml Complete Left Deltoid Axillary C5-6 Nml Nml Nml Nml Nml 0 Nml Complete FINDINGS: All motor and sensory nerves tested showed normal latencies, amplitudes and conduction velocities. Concentric needle EMG was performed in selected muscles of the bilateral upper extremities. Study did not reveal signs of electric abnormalities as shown in the table above. IMPRESSION: 1. This is a normal study. 2. There is no electrodiagnostic evidence for median neuropathy, ulnar neuropathy, brachial plexopathy, or cervical radiculopathy. Thank you for your kind referral. Sherie Hamilton MD, СЕРГЕЙ Board Certified, [place] [employer] and [employer] (ABPMR) Board Certified, [place] Board of Electrodiagnostic Medicine (ABEM) CODIN [phone] x 2 MTDD
== END 2024-01-15 12:38 | disposition home or self-care (01) ==
LOC: HO.NEURO 12:37
DX: R20.0 Anesthesia of skin (principal); R20.2 Paresthesia of skin
CPT/HCPCS: 95886; 95911

== ENCOUNTER → 2024-01-15 12:41 | Outpatient (BNV) | payer MEDICAID, SELFPAY | PROVIDERS: Visit Provider Physical Medicine & Rehabilitation | DX: R20.0 Anesthesia of skin (principal); R20.2 Paresthesia of skin; M79.641 Pain in right hand; M79.642 Pain in left hand | CPT/HCPCS: 95886; 95911 ==

== ENCOUNTER 2024-06-17 18:02 | Outpatient (REF) | payer MEDICAID, SELFPAY ==
[2024-06-18 06:00] LABS: CT PCR NOT DETECTED (Not Detect.); NG PCR NOT DETECTED (Not Detect.)
== END 2024-06-17 18:03 | disposition home or self-care (01) ==
LOC: HO.LNP 18:02
PROVIDERS: Visit Provider Nurse Practitioner Family
DX: Z00.00 Encounter for general adult medical examination without abnormal findings (principal); E66.9 Obesity, unspecified
CPT/HCPCS: 87491; 87591

== ENCOUNTER 2025-03-24 10:42 | Outpatient (REF) | payer MEDICAID, SELFPAY ==
[2025-03-24 15:18] LABS: MANUAL DIFF FLAG NO
[2025-03-24 15:29] LABS: Hematocrit 36.6 % (37.0-47.0); Hemoglobin 11.3 g/dl (12.0-16.0); Imm Gran Abs Auto 0.01 X10*3/uL (0.00-0.03); Imm Gran Pct Auto 0.2 % (0.0-0.4); Lymphocytes Absolute Auto 1.6 X10*3/uL (1.2-4.9); Mean Corpuscular HGB Conc 30.9 g/dl (31.0-35.0); Mean Corpuscular Hemoglobin 23.8 pg (27.0-33.0); Mean Corpuscular Volume 77.1 fL (80.0-98.0); NRBC Abs Auto 0.000 X10*3/uL (0.0-0.012); NRBC Pct Auto 0.0 /100WBC (0.0-0.2); Platelet Count 210 X10*3/uL (160-400); Red Blood Count 4.75 X10*6/uL (4.20-5.50); White Blood Count 6.5 X10*3/uL (4.8-10.8)
[2025-03-24 15:57] LABS: Alanine Aminotransferase 19 U/L (0-31); Albumin Level 4.3 g/dL (3.5-5.0); Alkaline Phosphatase 109 U/L (39-117); Anion Gap 9 (12-20); Aspartate Amino Transferase 26 U/L (5-31); Blood Urea Nitrogen 10 mg/dL (9-16); Calcium 9.2 mg/dL (8.4-10.2); Carbon Dioxide 26 mmol/L (22-29); Chloride 109 mmol/L (96-108); Cholesterol 160 mg/dL (<200); Estimated Glomerular Filt Rate > 60; HDL Cholesterol 42 mg/dL (>40); Potassium 4.2 mmol/L (3.3-5.1); Sodium 140 mmol/L (135-145); Total Protein 7.0 g/dL (6.5-8.0); Triglycerides 97 mg/dL (<150)
[2025-03-27 04:40] LABS: HIV Num 1 0.07 S/CO (0.00-0.99); ~HepC Num1 0.11 S/CO (0.00-0.79); ~Hepatitis C Antibody Nonreactive (Nonreactive)
[2025-03-27 16:48] LABS: TS Negative Control Passed; TS Panel A 0; TS Panel B 0; TS Positive Control Passed; TSpotTB Negative (Negative)
== END 2025-03-24 10:43 | disposition home or self-care (01) ==
LOC: HO.HHCL 10:42
PROVIDERS: PCP Nurse Practitioner Family; Referring Provider Pediatrics; Visit Provider Nurse Practitioner Family
DX: Z00.00 Encounter for general adult medical examination without abnormal findings (principal); L52 Erythema nodosum; E66.9 Obesity, unspecified; Z01.84 Encounter for antibody response examination; Z11.1 Encounter for screening for respiratory tuberculosis; Z11.4 Encounter for screening for human immunodeficiency virus [HIV]; Z11.59 Encounter for screening for other viral diseases; Z11.3 Encounter for screening for infections with a predominantly sexual mode of transmission
CPT/HCPCS: 36415; 80053; 80061; 85025; 85652; 86038; 86140; 86481; 86592; 86803; 87389